=== PATIENT | male | born 1955 | race Caucasian/White ===

== ENCOUNTER → 2016-10-15 | Outpatient (CLI) | payer OTHER ==
[~2016-10-15] MED LIST: ASPI-983 PO; CLOP75TA28 PO; HYDR-3820 PO; ISOS30TA3 PO; METO-270 PO; METO-352 PO; OMG1KC PO; PANT40TA3 PO; ROSU20TA PO
[2016-10-15 09:19] LABS: BILIRUBIN,DIRECT 0.1 MG/DL (0.0-0.3); BILIRUBIN,INDIRECT 0.4 MG/DL; BILIRUBIN,TOTAL 0.5 MG/DL (0.1-1.0); TOTAL PROTEIN 7.1 G/DL (6.4-8.2)
== END ==
LOC: LAB 08:44
PROVIDERS: ATTEND Physician Assistant
DX: R74.8 Abnormal levels of other serum enzymes (principal)
CPT/HCPCS: 36415; 80076

== ENCOUNTER → 2017-02-14 | Outpatient (CLI) | payer OTHER ==
--- NOTE | 2017-02-14 08:15 | Diagnostic Imaging Report ---
PROCEDURE: US Gallbladder. TECHNIQUE: Multiple real-time grayscale images were obtained over the right upper quadrant in various projections. INDICATION: Right upper quadrant pain. FINDINGS: The pancreas is largely obscured by bowel gas. The liver is fairly homogeneous with no focal lesion. There is hepatopedal flow in the portal vein. The CBD is obscured by bowel gas. The gallbladder demonstrates no stones or wall thickening. No pericholecystic fluid. Sonographic Mina sign reportedly negative. The right kidney is 11.8 CM in length with no hydronephrosis. There is a cyst measuring 3.8 CM in along the lateral aspect of the lower pole of the left kidney with internal minimal echogenicity may relate to debris with no solid component or internal flow evident. No ascites or fluid collection noted. IMPRESSION: No gallstones or evidence of cholecystitis. Dictated by: Dictated on workstation # [id number]
== END ==
LOC: RAD 06:58
PROVIDERS: ATTEND Family Medicine
DX: R10.11 Right upper quadrant pain (principal)
CPT/HCPCS: 76705

== ENCOUNTER 2017-03-15 02:00 | Emergency (ER) | payer OTHER ==
[~2017-03-15] VITALS: Ht 182.9 cm; Wt 90.7 kg
--- OUTSIDE RECORDS SUMMARY | 2017-03-15 02:10 | XMS REPORT | Continuity of Care Document ---
Author Author [facility] Organization [facility] Address Unknown Phone Unavailable Allergies Active Description Code Type Severity Reaction Onset Reported/Identified Relationship to Patient Clinical Status Yes meperidine [id number] Drug Allergy Unknown N/A 03/31/2016 Yes Penicillins [id number] Drug Allergy Unknown N/A 03/31/2016 Medications Problems Date Dx Coded Attending Type Code Diagnosis Diagnosed By 10/21/2014 RENE TIWARI DO Ot 715.36 10/21/2014 RENE TIWARI DO Ot 717.1 10/21/2014 RENE TIWARI DO Ot 717.2 10/21/2014 RENE TIWARI DO Ot 727.51 09/01/2015 RENE TIWARI DO Ot 715.36 09/01/2015 GELMEGHANADER RENE MCKEE Ot 717.1 09/01/2015 GELMEGHANADER RENE MCKEE Ot 717.2 09/01/2015 RENE TIWARI DO Ot 727.51 03/31/2016 RENE TIWARI DO Ot 715.36 LOC OSTEOARTH NOS-L/LEG 03/31/2016 RENE TIWARI DO Ot 717.1 DERANG ANT MED MENISCUS 03/31/2016 GELRENE AMAYA DO Ot 717.2 DERANG POST MED MENISCUS 03/31/2016 GELMEGHANADER RENE MCKEE Ot 727.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 04/02/2016 MOO KASPER MD Ot E78.5 HYPERLIPIDEMIA, UNSPECIFIED 04/02/2016 MOO KASPER MD Ot I10 ESSENTIAL (PRIMARY) HYPERTENSION 04/02/2016 MOO KASPER MD Ot I21.19 STEMI INVOLVING OTH CORONARY ARTERY OF I 04/02/2016 MOO KASPER MD Ot I25.10 ATHSCL HEART DISEASE OF [place] CORONARY 04/02/2016 MOO KASPER MD, Ot I25.82 CHRONIC TOTAL OCCLUSION OF CORONARY [place] 04/02/2016 MOO KASPER MD, Ot K21.9 GASTRO-ESOPHAGEAL REFLUX DISEASE WITHOUT 04/02/2016 MOO KASPER MD, Ot Z87.891 PERSONAL HISTORY OF NICOTINE DEPENDENCE 04/02/2016 MOO KASPER MD Ot E78.5 HYPERLIPIDEMIA, UNSPECIFIED 04/02/2016 MOO KASPER MD Ot I10 ESSENTIAL (PRIMARY) HYPERTENSION 04/02/2016 MOO KASPER MD Ot I21.19 STEMI INVOLVING OTH CORONARY ARTERY OF I 04/02/2016 MOO KASPER MD, Ot I25.10 ATHSCL HEART DISEASE OF [place] CORONARY 04/02/2016 MOO KASPER MD, Ot I25.82 CHRONIC TOTAL OCCLUSION OF CORONARY [place]IR[place] 04/02/2016 MOO KASPER MD, Ot K21.9 GASTRO-ESOPHAGEAL REFLUX DISEASE WITHOUT 04/02/2016 MOO KASPER MD Ot R09.89 OT SYMPTOMS AND SIGNS INVOLVING THE CIR 04/02/2016 MOO KASPER MD, Ot Z87.891 PERSONAL HISTORY OF NICOTINE DEPENDENCE 04/08/2016 RENE TIWARI DO Ot 715.36 LOC OSTEOARTH NOS-L/LEG 04/08/2016 RENE TIWARI DO Ot 717.1 DERANG ANT MED MENISCUS 04/08/2016 RENE TIWARI DO Ot 717.2 DERANG POST MED MENISCUS 04/08/2016 RENE TIWARI DO Ot 727.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 04/08/2016 CHRIS BRAXTON MD Ot K40.90 UNIL INGUINAL HERNIA, W/O OBST OR GANGR, 04/08/2016 CHRIS BRAXTON MD Ot K44.9 DIAPHRAGMATIC HERNIA WITHOUT OBSTRUCTION 04/08/2016 CHRIS BRAXTON MD Ot K57.30 DVRTCLOS OF LG INT W/O PERFORATION OR AB 04/08/2016 CHRIS RBAXTON MD Ot N20.2 CALCULUS OF KIDNEY WITH CALCULUS OF URET 04/08/2016 CHRIS BRAXTON MD Ot R10.31 RIGHT LOWER QUADRANT PAIN 04/13/2016 CHRIS BRAXTON MD, Ot N20.0 CALCULUS OF KIDNEY 04/20/2016 ALISTAIR MULLEN MD, Ot N20.2 CALCULUS OF KIDNEY WITH CALCULUS OF URET 04/21/2016 ALISTAIR MULLEN MD Ot Z53.9 PROCEDURE AND TREATMENT NOT CARRIED OUT, 05/01/2016 NIXON KASPER MD Ot I10 ESSENTIAL (PRIMARY) HYPERTENSION 05/01/2016 NIXON KASPER MD Ot R04.0 EPISTAXIS 05/01/2016 NIXON KASPER MD, Ot Z79.01 ALF (CURRENT) USE OF ANTICOAGULANT 05/01/2016 GELLENDER DO, RENE Cabezas Ot 715.36 LOC OSTEOARTH NOS-L/LEG 05/01/2016 GELLENDER DO, RENE Raulito Ot 717.1 DERANG ANT MED MENISCUS 05/01/2016 GELLENDER DO, RENE A Ot 717.2 DERANG POST MED MENISCUS 05/01/2016 GELLENDER DO, RENE A Ot 727.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 05/01/2016 IRAIS HINSON, CHRIS Cabezas Ot K40.90 UNIL INGUINAL HERNIA, W/O OBST OR GANGR, 05/01/2016 CHRIS BRAXTON MD Ot K44.9 DIAPHRAGMATIC HERNIA WITHOUT OBSTRUCTION 05/01/2016 CHRIS BRAXTON MD Ot K57.30 DVRTCLOS OF LG INT W/O PERFORATION OR AB 05/01/2016 CHRIS BRAXTON MD Ot N20.2 CALCULUS OF KIDNEY WITH CALCULUS OF URET 05/01/2016 CHRIS BRAXTON MD Ot R10.31 RIGHT LOWER QUADRANT PAIN 05/01/2016 CHRIS BRAXTON MD, Ot N20.0 CALCULUS OF KIDNEY 05/01/2016 ALISTAIR MULLEN MD, Ot Z53.9 PROCEDURE AND TREATMENT NOT CARRIED OUT, 05/01/2016 ALISTAIR MULLEN MD, Ot N20.2 CALCULUS OF KIDNEY WITH CALCULUS OF URET 05/03/2016 NIXON KASPER MD Ot I10 ESSENTIAL (PRIMARY) HYPERTENSION 05/03/2016 NIXON KASPER MD Ot R04.0 EPISTAXIS 05/03/2016 NIXON KASPER MD, Ot Z79.01 ALF (CURRENT) USE OF ANTICOAGULANT 06/01/2016 MOO KASPER MD Ot E78.5 HYPERLIPIDEMIA, UNSPECIFIED 06/01/2016 MOO KASPER MD Ot I10 ESSENTIAL (PRIMARY) HYPERTENSION 06/01/2016 MOO KASPER MD Ot I21.3 ST ELEVATION (STEMI) MYOCARDIAL INFARCTI 06/01/2016 MOO KASPER MD Ot I25.10 ATHSCL HEART DISEASE OF [place] CORONARY 06/01/2016 MOO KASPER MD Ot K21.9 GASTRO-ESOPHAGEAL REFLUX DISEASE WITHOUT 11/04/2016 YOHAN QUINTERO Ot R74.8 ABNORMAL LEVELS OF OTHER SERUM ENZYMES 02/10/2017 GELMONIQUE DORENE Ot 715.36 LOC OSTEOARTH NOS-L/LEG 02/10/2017 GELLENDER DO, RENE Cabezas Ot 717.1 DERANG ANT MED MENISCUS 02/10/2017 GELLENDER DO, RENE Cabezas Ot 717.2 DERANG POST MED MENISCUS 02/10/2017 GELLENDER DO, RENE Cabezas Ot 727.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 02/10/2017 CHRIS BRAXTON MD, Ot N20.0 CALCULUS OF KIDNEY 02/10/2017 ALISTAIR MULLEN MD Ot Z53.9 PROCEDURE AND TREATMENT NOT CARRIED OUT, 02/10/2017 ALISTAIR MULLEN MD Ot N20.2 CALCULUS OF KIDNEY WITH CALCULUS OF URET 02/10/2017 MOO KASPER MD Ot E78.5 HYPERLIPIDEMIA, UNSPECIFIED 02/10/2017 MOO KASPER MD Ot I10 ESSENTIAL (PRIMARY) HYPERTENSION 02/10/2017 MOO KASPER MD Ot I21.3 ST ELEVATION (STEMI) MYOCARDIAL INFARCTI 02/10/2017 MOO KASPER MD Ot I25.10 ATHSCL HEART DISEASE OF [place] CORONARY 02/10/2017 MOO KASPER MD, Ot K21.9 GASTRO-ESOPHAGEAL REFLUX DISEASE WITHOUT 02/10/2017 YOHAN QUINTERO Ot R74.8 ABNORMAL LEVELS OF OTHER SERUM ENZYMES 02/10/2017 GELLENDER DORENE Ot 715.36 LOC OSTEOARTH NOS-L/LEG 02/10/2017 GELLENDER DORENE Ot 717.1 DERANG ANT MED MENISCUS 02/10/2017 GELLENDER DO, RENE Cabezas Ot 717.2 DERANG POST MED MENISCUS 02/10/2017 GELLENDER DO, RENE Cabezas Ot 727.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 02/10/2017 CHRIS BRAXTON MD Ot N20.0 CALCULUS OF KIDNEY 02/10/2017 ALISTAIR MULLEN MD Ot Z53.9 PROCEDURE AND TREATMENT NOT CARRIED OUT, 02/10/2017 ALISTAIR MULLEN MD Ot N20.2 CALCULUS OF KIDNEY WITH CALCULUS OF URET 02/10/2017 MOO KASPER MD Ot E78.5 HYPERLIPIDEMIA, UNSPECIFIED 02/10/2017 MOO KASPER MD Ot I10 ESSENTIAL (PRIMARY) HYPERTENSION 02/10/2017 MOO KASPER MD Ot I21.3 ST ELEVATION (STEMI) MYOCARDIAL INFARCTI 02/10/2017 MOO KASPER MD, Ot I25.10 ATHSCL HEART DISEASE OF [place] CORONARY 02/10/2017 MOO KASPER MD Ot K21.9 GASTRO-ESOPHAGEAL REFLUX DISEASE WITHOUT 02/10/2017 YOHAN QUINTERO Ot R74.8 ABNORMAL LEVELS OF OTHER SERUM ENZYMES 02/10/2017 GELLENDER DO, RENE Cabezas Ot 715.36 LOC OSTEOARTH NOS-L/LEG 02/10/2017 GELLENDER DORENE Ot 717.1 DERANG ANT MED MENISCUS 02/10/2017 GELLENDER DO, RENE Cabezas Ot 717.2 DERANG POST MED MENISCUS 02/10/2017 GELLENDER DO, RENE Raulito Ot 727.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 02/10/2017 CHRIS BRAXTON MD Ot N20.0 CALCULUS OF KIDNEY 02/10/2017 ALISTAIR MULLEN MD Ot Z53.9 PROCEDURE AND TREATMENT NOT CARRIED OUT, 02/10/2017 ALISTAIR MULLEN MD Ot N20.2 CALCULUS OF KIDNEY WITH CALCULUS OF URET 02/10/2017 MOO KASPER MD Ot E78.5 HYPERLIPIDEMIA, UNSPECIFIED 02/10/2017 MOO KASPER MD Ot I10 ESSENTIAL (PRIMARY) HYPERTENSION 02/10/2017 MOO KASPER MD Ot I21.3 ST ELEVATION (STEMI) MYOCARDIAL INFARCTI 02/10/2017 MOO KASPER MD Ot I25.10 ATHSCL HEART DISEASE OF [place] CORONARY 02/10/2017 MOO KASPER MD Ot K21.9 GASTRO-ESOPHAGEAL REFLUX DISEASE WITHOUT 02/10/2017 YOHAN QUINTERO Ot R74.8 ABNORMAL LEVELS OF OTHER SERUM ENZYMES Procedures Code Description Performed By Performed On [id number] DILATION OF 1 COR ART WITH DRUG-ELUT INT 03/31/2016 [id number] MEASURE OF CARDIAC SAMPL PRESSURE, R H 03/31/2016 [id number] FLUOROSCOPY OF SINGLE CORONARY ARTERY US 03/31/2016 [id number] FLUOROSCOPY OF LEFT HEART USING LOW OSMO 03/31/2016 Results Test Result Range Complete blood count (CBC) with automated white blood cell (WBC) differential - 03/31/16 19:08 Blood leukocytes automated count (number/volume) 7.6 10*3/ uL 4.3-11.0 Blood erythrocytes automated count (number/volume) 4.96 10*6 /uL 4.35-5.85 Venous blood hemoglobin measurement (mass/volume) 15.5 g/dL 13.3-17.7 Blood hematocrit (volume fraction) 46 % 40-54 Automated erythrocyte mean corpuscular volume 93 [foz_us] 80-99 Automated erythrocyte mean corpuscular hemoglobin (mass per erythrocyte) 31 pg 25-34 Automated erythrocyte mean corpuscular hemoglobin concentration measurement ( mass/volume) 34 g/dL 32-36 Automated erythrocyte distribution width ratio 13.5 % 10.0-14.5 Automated blood platelet count (count/volume) 195 10*3/uL 130-400 Automated blood platelet mean volume measurement 11.4 [foz_ us] 7.4-10.4 Automated blood neutrophils/100 leukocytes 56 % 42-75 Automated blood lymphocytes/100 leukocytes 29 % 12-44 Blood monocytes/100 leukocytes 11 % 0-12 Automated blood eosinophils/100 leukocytes 4 % 0-10 Automated blood basophils/100 leukocytes 1 % 0-10 Blood neutrophils automated count (number/volume) 4.3 10*3 1.8-7.8 Blood lymphocytes automated count (number/volume) 2.2 10*3 1.0-4.0 Blood monocytes automated count (number/volume) 0.8 10*3 0.0-1.0 Automated eosinophil count 0.3 10*3/uL 0.0-0.3 Automated blood basophil count (count/volume) 0.1 10*3/uL 0.0-0.1 PT panel in platelet poor plasma by coagulation assay - 03/31/16 19:08 Prothrombin time (PT) in platelet poor plasma by coagulation assay 13.0 s 12.2-14.7 INR in platelet poor plasma or blood by coagulation assay 1.0 0.8-1.4 Activated partial thromboplastin time (aPTT) in platelet poor plasma bycoagulation assay - 03/31/16 19:08 Activated partial thromboplastin time (aPTT) in platelet poor plasma bycoagulation assay 28 s 24-35 Comprehensive metabolic panel - 03/31/16 19:08 Serum or plasma sodium measurement (moles/volume) 139 mmol/ L 135-145 Serum or plasma potassium measurement (moles/volume) 4.2 mmol/L 3.6-5.0 Serum or plasma chloride measurement (moles/volume) 104 mmol /L 98-107 Carbon dioxide 27 mmol/L 21-32 Serum or plasma anion gap determination (moles/volume) 8 mmol/L 5-14 Serum or plasma urea nitrogen measurement (mass/volume) 17 mg/dL 7-18 Serum or plasma creatinine measurement (mass/volume) 1.60 mg /dL 0.60-1.30 Serum or plasma urea nitrogen/creatinine mass ratio 11 NRG Serum or plasma creatinine measurement with calculation of estimated glomerular filtration rate 44 NRG Serum or plasma glucose measurement (mass/volume) 145 mg/dL 70-105 Serum or plasma calcium measurement (mass/volume) 9.4 mg/dL 8.5-10.1 Serum or plasma total bilirubin measurement (mass/volume) 0.6 mg/dL 0.1-1.0 Serum or plasma alkaline phosphatase measurement (enzymatic activity/volume) 94 U/L 40-136 Serum or plasma aspartate aminotransferase measurement (enzymatic activity/ volume) 39 U/L 5-34 Serum or plasma alanine aminotransferase measurement (enzymatic activity/volume ) 55 U/L 0-55 Serum or plasma protein measurement (mass/volume) 7.3 g/dL 6.4-8.2 Serum or plasma albumin measurement (mass/volume) 4.3 g/dL 3.2-4.5 Magnesium - 03/31/16 19:08 Magnesium 2.1 mg/dL 1.8-2.4 Serum or plasma troponin i.cardiac measurement (mass/volume) - 03/31/16 19:08 Serum or plasma troponin i.cardiac measurement (mass/volume) 0.69 ng/mL <0.30 Myoglobin, serum - 03/31/16 19:08 Myoglobin, serum 112.4 ng/mL 10.0-92.0 Automated blood complete blood count (hemogram) panel - 04/01/16 04:06 Blood leukocytes automated count (number/volume) 11.5 10*3/ uL 4.3-11.0 Blood erythrocytes automated count (number/volume) 4.29 10*6 /uL 4.35-5.85 Venous blood hemoglobin measurement (mass/volume) 13.8 g/dL 13.3-17.7 Blood hematocrit (volume fraction) 40 % 40-54 Automated erythrocyte mean corpuscular volume 94 [foz_us] 80-99 Automated erythrocyte mean corpuscular hemoglobin (mass per erythrocyte) 32 pg 25-34 Automated erythrocyte mean corpuscular hemoglobin concentration measurement ( mass/volume) 34 g/dL 32-36 Automated erythrocyte distribution width ratio 13.4 % 10.0-14.5 Automated blood platelet count (count/volume) 155 10*3/uL 130-400 Automated blood platelet mean volume measurement 11.4 [foz_ us] 7.4-10.4 Whole blood basic metabolic panel - 04/01/16 04:06 Serum or plasma sodium measurement (moles/volume) 139 mmol/ L 135-145 Serum or plasma potassium measurement (moles/volume) 4.2 mmol/L 3.6-5.0 Serum or plasma chloride measurement (moles/volume) 107 mmol /L 98-107 Carbon dioxide 24 mmol/L 21-32 Serum or plasma anion gap determination (moles/volume) 8 mmol/L 5-14 Serum or plasma urea nitrogen measurement (mass/volume) 16 mg/dL 7-18 Serum or plasma creatinine measurement (mass/volume) 1.18 mg /dL 0.60-1.30 Serum or plasma urea nitrogen/creatinine mass ratio 14 NRG Serum or plasma creatinine measurement with calculation of estimated glomerular filtration rate > NRG Serum or plasma glucose measurement (mass/volume) 147 mg/dL 70-105 Serum or plasma calcium measurement (mass/volume) 8.5 mg/dL 8.5-10.1 Serum or plasma troponin i.cardiac measurement (mass/volume) - 04/01/16 04:06 Serum or plasma troponin i.cardiac measurement (mass/volume) 77.76 ng/mL <0.30 Lipid 1996 panel - 04/01/16 04:06 Serum or plasma triglyceride measurement (mass/volume) 193 mg/dL <150 Serum or plasma cholesterol measurement (mass/volume) 170 mg /dL < 200 Serum or plasma cholesterol in HDL measurement (mass/volume) 37 mg/dL 40-60 Cholesterol in LDL [mass/volume] in serum or plasma by direct assay 97 mg/dL 1-129 Serum or plasma cholesterol in VLDL measurement (mass/volume) 39 mg/dL 5-40 Automated blood complete blood count (hemogram) panel - 04/02/16 04:09 Blood leukocytes automated count (number/volume) 8.6 10*3/ uL 4.3-11.0 Blood erythrocytes automated count (number/volume) 3.61 10*6 /uL 4.35-5.85 Venous blood hemoglobin measurement (mass/volume) 11.3 g/dL 13.3-17.7 Blood hematocrit (volume fraction) 34 % 40-54 Automated erythrocyte mean corpuscular volume 95 [foz_us] 80-99 Automated erythrocyte mean corpuscular hemoglobin (mass per erythrocyte) 31 pg 25-34 Automated erythrocyte mean corpuscular hemoglobin concentration measurement ( mass/volume) 33 g/dL 32-36 Automated erythrocyte distribution width ratio 13.6 % 10.0-14.5 Automated blood platelet count (count/volume) 125 10*3/uL 130-400 Automated blood platelet mean volume measurement 11.2 [foz_ us] 7.4-10.4 Whole blood basic metabolic panel - 04/02/16 04:09 Serum or plasma sodium measurement (moles/volume) 139 mmol/ L 135-145 Serum or plasma potassium measurement (moles/volume) 4.1 mmol/L 3.6-5.0 Serum or plasma chloride measurement (moles/volume) 110 mmol /L 98-107 Carbon dioxide 22 mmol/L 21-32 Serum or plasma anion gap determination (moles/volume) 7 mmol/L 5-14 Serum or plasma urea nitrogen measurement (mass/volume) 17 mg/dL 7-18 Serum or plasma creatinine measurement (mass/volume) 1.16 mg /dL 0.60-1.30 Serum or plasma urea nitrogen/creatinine mass ratio 15 NRG Serum or plasma creatinine measurement with calculation of estimated glomerular filtration rate > NRG Serum or plasma glucose measurement (mass/volume) 89 mg/dL 70-105 Serum or plasma calcium measurement (mass/volume) 7.8 mg/dL 8.5-10.1 [id number] gene mutation analysis - 04/02/16 04:09 [id number] gene mutation analysis NORMAL NRG Complete urinalysis with reflex to culture - 04/08/16 12:40 Urine color determination YELLOW NRG Urine clarity determination CLEAR NRG Urine pH measurement by test strip 7 5- 9 Specific gravity of urine by test strip 1.010 1.016-1.022 Urine protein assay by test strip, semi-quantitative NEGATIVE NEGATIVE Urine glucose detection by automated test strip NEGATIVE NEGATIVE Erythrocytes detection in urine sediment by light microscopy 5+ NEGATIVE Urine ketones detection by automated test strip NEGATIVE NEGATIVE Urine nitrite detection by test strip NEGATIVE NEGATIVE Urine total bilirubin detection by test strip NEGATIVE NEGATIVE Urine urobilinogen measurement by automated test strip (mass/volume) NORMAL NORMAL Urine leukocyte esterase detection by dipstick NEGATIVE NEGATIVE Automated urine sediment erythrocyte count by microscopy (number/high power field) > [HPF] NRG Automated urine sediment leukocyte count by microscopy (number/high power field ) NONE NRG Bacteria detection in urine sediment by light microscopy NEGATIVE NRG Squamous epithelial cells detection in urine sediment by light microscopy RARE NRG Crystals detection in urine sediment by light microscopy NONE NRG Casts detection in urine sediment by light microscopy NONE NRG Mucus detection in urine sediment by light microscopy SMALL NRG Complete urinalysis with reflex to culture NO NRG Complete blood count (CBC) with automated white blood cell (WBC) differential - 04/08/16 12:57 Blood leukocytes automated count (number/volume) 7.6 10*3/ uL 4.3-11.0 Blood erythrocytes automated count (number/volume) 4.22 10*6 /uL 4.35-5.85 Venous blood hemoglobin measurement (mass/volume) 13.5 g/dL 13.3-17.7 Blood hematocrit (volume fraction) 39 % 40-54 Automated erythrocyte mean corpuscular volume 93 [foz_us] 80-99 Automated erythrocyte mean corpuscular hemoglobin (mass per erythrocyte) 32 pg 25-34 Automated erythrocyte mean corpuscular hemoglobin concentration measurement ( mass/volume) 34 g/dL 32-36 Automated erythrocyte distribution width ratio 13.4 % 10.0-14.5 Automated blood platelet count (count/volume) 230 10*3/uL 130-400 Automated blood platelet mean volume measurement 10.9 [foz_ us] 7.4-10.4 Automated blood neutrophils/100 leukocytes 67 % 42-75 Automated blood lymphocytes/100 leukocytes 19 % 12-44 Blood monocytes/100 leukocytes 10 % 0-12 Automated blood eosinophils/100 leukocytes 3 % 0-10 Automated blood basophils/100 leukocytes 0 % 0-10 Blood neutrophils automated count (number/volume) 5.1 10*3 1.8-7.8 Blood lymphocytes automated count (number/volume) 1.5 10*3 1.0-4.0 Blood monocytes automated count (number/volume) 0.8 10*3 0.0-1.0 Automated eosinophil count 0.3 10*3/uL 0.0-0.3 Automated blood basophil count (count/volume) 0.0 10*3/uL 0.0-0.1 PT panel in platelet poor plasma by coagulation assay - 04/08/16 12:57 Prothrombin time (PT) in platelet poor plasma by coagulation assay 12.6 s 12.2-14.7 INR in platelet poor plasma or blood by coagulation assay 1.0 0.8-1.4 Activated partial thromboplastin time (aPTT) in platelet poor plasma bycoagulation assay - 04/08/16 12:57 Activated partial thromboplastin time (aPTT) in platelet poor plasma bycoagulation assay 28 s 24-35 Comprehensive metabolic panel - 04/08/16 12:57 Serum or plasma sodium measurement (moles/volume) 139 mmol/ L 135-145 Serum or plasma potassium measurement (moles/volume) 4.1 mmol/L 3.6-5.0 Serum or plasma chloride measurement (moles/volume) 108 mmol /L 98-107 Carbon dioxide 23 mmol/L 21-32 Serum or plasma anion gap determination (moles/volume) 8 mmol/L 5-14 Serum or plasma urea nitrogen measurement (mass/volume) 14 mg/dL 7-18 Serum or plasma creatinine measurement (mass/volume) 1.56 mg /dL 0.60-1.30 Serum or plasma urea nitrogen/creatinine mass ratio 9 NRG Serum or plasma creatinine measurement with calculation of estimated glomerular filtration rate 45 NRG Serum or plasma glucose measurement (mass/volume) 106 mg/dL 70-105 Serum or plasma calcium measurement (mass/volume) 8.8 mg/dL 8.5-10.1 Serum or plasma total bilirubin measurement (mass/volume) 0.6 mg/dL 0.1-1.0 Serum or plasma alkaline phosphatase measurement (enzymatic activity/volume) 93 U/L 40-136 Serum or plasma aspartate aminotransferase measurement (enzymatic activity/ volume) 29 U/L 5-34 Serum or plasma alanine aminotransferase measurement (enzymatic activity/volume ) 41 U/L 0-55 Serum or plasma protein measurement (mass/volume) 6.7 g/dL 6.4-8.2 Serum or plasma albumin measurement (mass/volume) 3.9 g/dL 3.2-4.5 Magnesium - 04/08/16 12:57 Magnesium 2.1 mg/dL 1.8-2.4 Serum or plasma troponin i.cardiac measurement (mass/volume) - 04/08/16 12:57 Serum or plasma troponin i.cardiac measurement (mass/volume) 0.93 ng/mL <0.30 Lipase - 04/08/16 12:57 Lipase 39 U/L 8-78 Serum or plasma lithium measurement (moles/volume) - 04/08/16 12:57 BNP level 164.5 pg/mL <100.0 Liver function panel (serum or plasma alk phos, alb, total and direct bili, total protein, ALT, AST) - 10/15/16 08:50 Serum or plasma total bilirubin measurement (mass/volume) 0.5 mg/dL 0.1-1.0 Serum or plasma alkaline phosphatase measurement (enzymatic activity/volume) 83 U/L 40-136 Serum or plasma aspartate aminotransferase measurement (enzymatic activity/ volume) 54 U/L 5-34 Serum or plasma alanine aminotransferase measurement (enzymatic activity/volume ) 118 U/L 0-55 Serum or plasma protein measurement (mass/volume) 7.1 g/dL 6.4-8.2 Serum or plasma albumin measurement (mass/volume) 4.0 g/dL 3.2-4.5 Bilirubin direct 0.1 mg/dL 0.0-0.3 Serum or plasma indirect bilirubin measurement (mass/volume) 0.4 mg/dL NRG Encounters ACCT No. Visit Date/Time Discharge Status Pt. Type Provider Facility Loc./Unit Complaint [id number] 05/01/2016 11:11:00 2015 12:19:00 DIS Emergency NIXON KASPER MD [facility] ER NOSE BLEED [id number] 04/08/2016 12:31:00 2015 14:31:00 DIS Emergency CHRIS BRAXTON MD [facility] ER LEFT SIDE ABD PAIN [id number] 03/31/2016 21:15:00 2015 12:18:00 DIS Inpatient MOO KASPER MD [facility] ICU STEMI [id number] 10/08/2013 15:37:00 2013 23:59:59 CLS Outpatient RENE TIWARI DO [facility] RAD RT KNEE PAIN X3 MONTHS [id number] 04/17/2017 10:15:00 PEN Preadmit MOO KASPER MD [facility] CARD CAD I25.10 [id number] 02/14/2017 07:00:00 PEN Preadmit RENE TIWARI DO [facility] RAD PAIN IN RUQ [id number] 10/15/2016 08:44:00 ACT Outpatient YOHAN STOUT [facility] LAB ELEVATED LIVER ENZYMES [id number] 05/31/2016 07:53:00 ACT Outpatient MOO KASPER MD [facility] LAB CAD,GERD,HTN [id number] 04/19/2016 09:00:00 PEN Preadmit ALISTAIR MULLEN MD [facility] SDC LEFT STONE [id number] 04/18/2016 08:26:00 ACT Outpatient ALISTAIR MULLEN MD [facility] RAD URETERAL AND RENAL STONE [id number] 04/18/2016 06:20:00 ACT Outpatient ALISTAIR MULLEN MD [facility] PREOP LEFT STONE [id number] 04/11/2016 10:06:00 ACT Outpatient CHRIS BRAXTON MD [facility] RAD NEPHROLITHIASIS
[2017-03-15] MEDS ORDERED: OXYMETAZOLINE (AFRIN) 0.05% NA 15 ML BTL ONE (02:31)
--- NOTE | 2017-03-15 03:31 | ED EENT ---
History of Present Illness General Chief Complaint: Nasal Problems Stated Complaint: NOSE BLEED Nursing Triage Note: PT TO ED 10 W/ FAMILY FOR C/O RT NOSE BLEED ONSET THIS EVENING AT 2200. DENIES TRAUMA. DOES REPORT HE IS TAKING BLOOD THINNERS FOR STENT PLACEMENT X2. NO OTHER C/O VOICED Source: patient Exam Limitations: no limitations History of Present Illness Time seen by provider: 04:28 Initial Comments This 61-year-old gentleman presents to the emergency room with right-sided nosebleed for several hours. He takes aspirin and Plavix. He can identify no inciting event. He has been trying to apply direct pressure and applied a tissue packing but states bleeding persists. Bleeding does seem to have resolved by the time of my assessment. He reports feeling nauseated from swallowing much blood. Allergies and Home Medications Allergies Coded Allergies: Penicillins (Verified Allergy, Unknown, 03/31/16) meperidine (Verified Allergy, Unknown, 03/31/16) Home Medications Aspirin 81 Mg Tablet., 81 MG PO DAILY, #30 Ref 4 Prescribed by: MOO KASPER on 04/02/16 1013 Clopidogrel Bisulfate 75 Mg Tablet, 75 MG PO DAILY, #30 Ref 4 Prescribed by: MOO KASPER on 04/02/16 1013 Isosorbide Mononitrate 30 Mg Tab.er.24h, 30 MG PO DAILY, #30 Ref 4 Prescribed by: MOO KASPER on 04/02/16 1013 Metoprolol Succinate 50 Mg Tab.er.24h, 50 MG PO DAILY, #30 Ref 1 Prescribed by: NIXON NICK on 05/01/16 1207 Pantoprazole Sodium 40 Mg Tablet., 40 MG PO DAILY@0700, #30 Ref 4 Prescribed by: MOO KASPER on 04/02/16 1013 Rosuvastatin Calcium 20 Mg Tablet, 20 MG PO DAILY, #30 Ref 4 Prescribed by: MOO KASPER on 04/02/16 1013 Review of Systems Constitutional: no symptoms reported Eyes: No Symptoms Reported Ears: No Symptoms Reported Nose: see HPI Mouth: no symptoms reported Throat: no symptoms reported Respiratory: no symptoms reported Cardiovascular: no symptoms reported Gastrointestinal: see HPI Musculoskeletal: no symptoms reported Hematologic/Lymphatic: See HPI Past Xaantgv-Jbbfgo-Afoaij Hx Patient Social History Alcohol Use: Denies Use Recreational Drug Use: No Smoking Status: Former Smoker Recent Foreign Travel: No Contact w/Someone Who Travel: No Recent Infectious Disease Expo: No Recent Hopitalizations: Yes Immunizations Up To Date Tetanus Booster (TDap): More than 5yrs PED Vaccines UTD: No Seasonal Allergies Seasonal Allergies: No Surgeries HX Surgeries: Yes Surgeries: Abdominal, Cardiac, Coronary Stent, Orthopedic Respiratory Hx Respiratory Disorders: No Cardiovascular Hx Cardiac Disorders: Yes Cardiac Disorders: Coronary Artery Disease, High Cholesterol, Hypertension Neurological Hx Neurological Disorders: No Reproductive System Hx Reproductive Disorders: No Sexually Transmitted Disease: No HIV/AIDS: No Genitourinary Hx Genitourinary Disorders: No Gastrointestinal Hx Gastrointestinal Disorders: No Musculoskeletal Hx Musculoskeletal Disorders: No Endocrine Hx Endocrine Disorders: No HEENT HX ENT Disorders: No Loss of Vision: Denies Hearing Impairment: Denies Cancer Hx Cancer: No Psychosocial Hx Psychiatric Problems: No Integumentary HX Skin/Integumentary Disorder: No Blood Transfusions Hx Blood Disorders: No Family Medical History Significant Family History: CAD Under 55 Years Old Physical Exam Vital Signs Vital Sign - Last 12Hours 03/15/17 03/15/17 02:21 03:34 Temp 97.5 Pulse 69 Resp 18 B/P (MAP) 129/103 Pulse Ox 97 O2 Delivery Room Air General Appearance: WD/WN, no apparent distress Nose: No active bleeding, other (Tissue packed in the right nostril with blood clot. 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 (03/15/17 09:00) Oxymetazoline 0.05% Nasal [place] (Afrin 0. (03/15/17 02:31) Vital Signs/I&O Vital Sign - Last 12Hours 03/15/17 03/15/17 02:21 03:34 Temp 97.5 Pulse 69 61 Resp 18 18 B/P (MAP) 129/103 Pulse Ox 97 99 O2 Delivery Room Air Blood Pressure Mean: 112 Progress Note : Progress Note Afrin nasal spray was applied. Patient was monitored to ensure no rebound of bleeding. No active bleeding occurred during his stay. Departure Impression Impression: Primary Impression: Epistaxis Disposition: HOME, SELF-CARE Condition: Improved Departure-Patient Inst. Decision time for Depature: 03:29 Referrals: RENE TIWARI DO (PCP/Family) Primary Care Physician Patient Instructions: Nosebleeds (DC) Add. Discharge Instructions: Skip your Plavix dose today. Continue aspirin. You may resume Plavix tomorrow if there is no further bleeding. If bleeding resumes, use up to 4 squirts of Afrin in the nose on the affected side and apply direct pressure by pinching the nose. If this does not resolve the bleeding in 15-20 minutes, return to the emergency room. All discharge instructions reviewed with patient and/or family. Voiced understanding. NIXON KASPER MD Mar 15, 2017 03:31
[2017-03-15 03:34] VITALS: BP 130/91
[2017-03-15] MEDS ORDERED: OXYMETAZOLINE (AFRIN) 0.05% NA 15 ML BTL SCH (09:00)
== END 2017-03-15 03:34 | disposition home or self-care (01) ==
LOC: EDUNIT# 02:00 → ER 02:02
DX: R04.0 Epistaxis (principal); I25.10 Atherosclerotic heart disease of native coronary artery without angina pectoris; E78.00 Pure hypercholesterolemia, unspecified; I10 Essential (primary) hypertension; Z95.1 Presence of aortocoronary bypass graft; Z87.891 Personal history of nicotine dependence; Z79.82 Long term (current) use of aspirin; Z98.890 Other specified postprocedural states
CPT/HCPCS: 99282

== ENCOUNTER → 2017-04-17 | Outpatient (CLI) | payer OTHER ==
[~2017-04-17] MED LIST changes: +CATHETER FLUSH 10 ML SYR IV PRN
[2017-04-17 09:42] VITALS: BP 126/70
--- NOTE | 2017-04-17 12:46 | STRESS TEST ---
DATE OF SERVICE: 04/17/2017 EXERCISE MYOVIEW STRESS TEST REFERRING PHYSICIAN: Dr. Singh Baseline heart rate is 49. Baseline blood pressure 135/77. Baseline EKG is sinus rhythm with no ischemic changes. SUMMARY: The patient was injected with 10.34 mCi of technetium-99 Myoview and the resting images were obtained. Then, the patient started exercising with a baseline heart rate, blood pressure and EKG mentioned above. The patient was able to exercise for a total of 9 minutes on standard Salo protocol, achieving maximum heart rate of 140, which is 89% of maximum expected heart rate. With peak exercise level, blood pressure was 176/86. During recovery, heart rate and blood pressure returned to baseline. EKG returned to baseline. The patient had minimal nondiagnostic changes with peak stress level. The resting and stress images were reviewed and compared in the short axis, horizontal long axis, and vertical long axis views. Review of the images showed diaphragmatic attenuation with mild decreased uptake at the basal to mid-inferior wall with subtle reversibility, typical male pattern. No significant ischemia or infarction was seen. SSS is 4, SDS 1, TID value 0.84. On the gaited images, the left ventricle appeared to be normal size with normal contractility. Calculated ejection fraction 66%. CONCLUSION: 1. Good exercise tolerance, a total of 9 minutes on standard Salo protocol, total of 10.5 METS achieving 89% of maximum expected heart rate. 2. Appropriate heart rate and blood pressure response to exercise returned to baseline during recovery. 3. Nondiagnostic EKG changes with exercise returned to baseline during recovery. 4. Diaphragmatic attenuation with typical male pattern. No significant ischemia or infarction on SPECT images. 5. Normal left ventricular size with normal contractility. Calculated ejection fraction 66%. Job ID: [id number] DocumentID: [id number] Dictated Date: 04/17/2017 11:56:53 Power Wheelchair Mechanic Date: 04/17/2017 12:34:03 Dictated By: MOO KASPER MD
== END ==
LOC: CARD 08:09
PROVIDERS: ATTEND Internal Medicine Cardiovascular Disease
DX: I25.10 Atherosclerotic heart disease of native coronary artery without angina pectoris (principal); I10 Essential (primary) hypertension; E78.2 Mixed hyperlipidemia
CPT/HCPCS: 78452; 93017

== ENCOUNTER 2017-05-11 09:35 | Outpatient (CLI) | payer OTHER ==
[~2017-05-11] VITALS: Ht 182.9 cm; Wt 93.9 kg
[~2017-05-11 09:35] MED LIST changes: -CATHETER FLUSH 10 ML SYR IV PRN
[2017-05-11] MEDS ORDERED: ROSU5TAB PO (09:45)
[2017-05-11] MEDS ORDERED: AMLO10TA4 PO (09:45)
[2017-05-11 09:47] VITALS: BP 134/92
== END 2017-05-11 13:34 | disposition home or self-care (01) ==
LOC: PREOP 09:35
PROVIDERS: ATTEND Orthopaedic Surgery
DX: Z01.818 Encounter for other preprocedural examination (principal); M75.102 Unspecified rotator cuff tear or rupture of left shoulder, not specified as traumatic
CPT/HCPCS: 87081

== ENCOUNTER 2017-05-23 06:00 | Day surgery (SDC) | payer OTHER ==
[~2017-05-23] VITALS: Ht 182.9 cm; Wt 93.9 kg
[~2017-05-23 06:00] MED LIST changes: +AMLO10TA4 PO; -METO-270 PO; +METO-387 PO; +ROSU5TAB PO
[2017-05-23 06:15] VITALS: BP 135/87
[2017-05-23] MEDS ORDERED: ceFAZolin 2 GM/50 ML NS 50 ML ONE (06:17)
[2017-05-23] MEDS ORDERED: MIDAZOLAM 2 MG/2 ML (VERSED) VIAL ONE (06:18)
[2017-05-23] MEDS ORDERED: ROPIVACAINE 5MG/ML 30ML VIAL ONE (06:19)
[2017-05-23] MEDS ORDERED: ONDANSETRON 4 MG/2 ML (SDV) Z0FRAN IV ONE (06:45)
[2017-05-23] MEDS ORDERED: FAMOTIDINE 20MG/2ML IV (PEPCID) IV ONE (06:45)
[2017-05-23] MEDS ORDERED: SCOPOLAMINE 1.5 MG (TRANSDERM-SCOP) PATCH TOP ONE (06:45)
[2017-05-23] MEDS: LACTATED RINGERS 1,000 ML IV PRN ×2 (06:50→08:46)
[2017-05-23] MEDS ORDERED: NEO/POLY/BAC (NEOSPORIN) OINT 15 GM TUBE ONE (06:59)
[2017-05-23] MEDS ORDERED: EPINEPHrine INJECTION 1 MG/ML AMP ONE (06:59)
[2017-05-23] MEDS ORDERED: LIDOCAINE 1% INJ 20 ML (XYLOCAINE) VIAL ONE (06:59)
[2017-05-23] MEDS ORDERED: ceFAZolin 2 GM/NS 50 ML IV ONE (07:00)
[2017-05-23] MEDS ORDERED: LACTATED RINGERS 1,000 ML IV ONE ×2 (07:01→08:43)
[2017-05-23] MEDS ORDERED: proPOfol 200 MG/20 ML (DIPRIVAN) VIAL IV ONE (07:01)
[2017-05-23] MEDS ORDERED: ROCURONIUM 50 MG/5 ML (ZEMURON) VIAL IV ONE (07:01)
[2017-05-23] MEDS ORDERED: LIDOCAINE PF 2% 5 ML (XYLOCAINE) VIAL ONE (07:01)
[2017-05-23] MEDS ORDERED: ONDANSETRON 4 MG/2 ML (SDV) Z0FRAN ONE (07:01)
[2017-05-23] MEDS ORDERED: SUCCINYLCHOLINE INJ 100 MG/5 ML SYR ONE (07:01)
[2017-05-23] MEDS ORDERED: fentaNYL INJECTION 100 MCG/2 ML AMP ONE (07:02)
[2017-05-23] MEDS ORDERED: DEXAMETHASONE 10 MG/ML (DECADRON) 1 ML VIAL ONE (07:02)
[2017-05-23] MEDS ORDERED: SEVOFLURANE (ULTANE) 15 ML INHAL SOLN ONE ×5 (07:04→08:55)
--- NOTE | 2017-05-23 07:37 | Discharge Inst-Simple/Standard ---
Discharge Inst-Standard Discharge Medications New, Converted or Re-Newed RX: RX on Chart Patient Instructions/Follow Up Plan of Care/Instructions/FU: See Dr. Pruett's shoulder arthroscopy DC instructions Activity as Tolerated: No Discharge Diet: No Restrictions Return to The Hospital For: any concerns NISHANT FERNÁNDEZ APRN May 23, 2017 7:37 am
[2017-05-23] MEDS ORDERED: CLINDAMYCIN 600 MG/4ML (CLEOCIN) VIAL ONE (07:44)
--- NOTE | 2017-05-23 07:44 | Anesthesia-Peripheral Nerve Bl ---
Procedure Start/Stop Time Date of Procedure: May 23, 2017 Start Time: 06:45 Stop Time: 07:00 Peripheral Nerve Block Peripheral Nerve Blockade Risk/Benefits/Alternatives discussed, including IV injection leading to complications or seizures, nerve irritation or damage, pneumothorax, total spinal anesthesia, injection, and/or bleeding. Side Confirmed: LEFT Indication: Surgical Anesthesia Specifically requested for management of pain by: Patient Condition Vital Signs Vital Signs Date Time Temp Pulse Resp B/P (MAP) Pulse Ox O2 Delivery O2 Flow Rate FiO2 05/23/17 06:15 97.6 82 18 135/87 95 Room Air Patient Condition: Awake, Sedate/contact maintained Procedure Prepartation: Chlorhexidine Position: Supine [place]: Short-bevel Needle (s) Size: 22g 2" Technique: Injection through needle, Nerve Stimulation mA: 0.6 Depth (cm): 2 Sedation Given: Fentanyl Dose (mg/mcg): 2 Injectate: ropivacaine Concentration %: 0.5 Volume (ml): 30 Epinephrine used: No Narrative Injection was made incrementally with constant monitoring. Aspiration every (mls): 5 Blood Aspirated: No Pain on injection noted: No Events Events: None:easy well tolerated Sucess: Full evaluation-pending Patient Conditon Post Peripheral Nerve Block Post Peripheral Nerve Block Vital Signs: Blood Pressure: Systolic Diastolic Heart Rate Blood Pressure Systolic: 135 Blood Pressure Diastolic: 87 Pulse Rate (adult): 82 MAGALI CAMPOVERDE CRNA May 23, 2017 07:44
[2017-05-23] MEDS ORDERED: HYDROcodone/APAP 10 MG/325 MG (LORTAB) TAB PO PRN (07:45)
[2017-05-23] MEDS ORDERED: NS (IVPB) 50 ML ONE (07:45)
--- NOTE | 2017-05-23 07:52 | Progress Note-Pre Operative ---
Pre-Operative Progress Note H&P Reviewed The H&P was reviewed, patient examined and no changes noted. Date Seen by Provider: May 23, 2017 Time Seen by Provider: 07:40 Date H&P Reviewed: May 23, 2017 Time H&P Reviewed: 07:40 Pre-Operative Diagnosis: Impingement syndrome Left shoulder Partial rotator cuff tear HELENE AKHTAR DO May 23, 2017 7:52 am
[2017-05-23] MEDS ORDERED: CLINDAMYCIN 600 MG/NS 50 ML IVPB IV ONE ×2 (08:00)
[2017-05-23] MEDS ORDERED: NEOSTIGMINE (BLOXIVERZ ) 1 MG/1ML 10 ML VIAL ONE (09:04)
[2017-05-23] MEDS ORDERED: GLYCOPYRROLATE 0.2 MG/ML (ROBINUL) 2 ML VIAL ONE (09:04)
--- NOTE | 2017-05-23 09:25 | Progress Note-Post Operative ---
Post-Operative Progess Note Surgeon (s)/Behavioral Scientist (s) Surgeon Derek Pruett DO Behavioral Scientist: Rodney Fernández, ROASTER OPERATOR-C Pre-Operative Diagnosis Impingement syndrome Left shoulder Partial rotator cuff tear Post-Operative Diagnosis 1 2 same, 3 Primary OA, 4 labral tear Procedure & Operative Findings Date of Procedure 05/23/17 Procedure Performed/Findings see op note Anesthesia Type general with block Estimated Blood Loss Estimated blood loss (mL): min Specimens/Packing Specimens Removed none RODNEY FERNÁNDEZ APRN May 23, 2017 9:25 am
[2017-05-23] MEDS ORDERED: morphine INJ 10 MG/ML 1ML (SYR OR VIAL) ONE (09:26)
[2017-05-23] MEDS ORDERED: morphine INJ 10 MG/ML 1ML (SYR OR VIAL) IVP PRN (09:30)
[2017-05-23] MEDS ORDERED: ONDANSETRON 4 MG/2 ML (SDV) Z0FRAN IVP PRN (09:30)
[2017-05-23 10:10] VITALS: BP 131/86
[2017-05-23] MEDS ORDERED: ONDA8TAB9 PO (10:19)
[2017-05-23] MEDS ORDERED: HYDR-753 PO (10:19)
[2017-05-23 10:40] VITALS: BP 135/92
[2017-05-23 11:10] VITALS: BP 118/84
--- NOTE | 2017-06-06 09:55 | OPERATIVE REPORT ---
DATE OF SERVICE: 05/23/2017 PREOPERATIVE DIAGNOSES: Partial rotator cuff tendon tear, left shoulder with impingement. POSTOPERATIVE DIAGNOSES: 1. Partial supraspinatus tendon tear, left shoulder. 2. Impingement syndrome left shoulder, secondary to primary osteoarthritis of the acromioclavicular joint. 3. Type 2 superior labral tear from anterior to posterior, left shoulder bicipital tendinitis. 4. Grade 4 chondromalacia, glenohumeral joint, left shoulder. PROCEDURE: 1. Arthroscopy, left shoulder with arthroscopic debridement, partial supraspinatus tendon tear, left shoulder. 2. Arthroscopic biceps tenotomy, left shoulder. 3. Arthroscopic subacromial decompression, left shoulder. 4. Arthroscopic chondroplasty, left shoulder with debridement of labral tear. SURGEON: Helene Akhtar DO PSYCHIC READER: MONE Chakraborty ANESTHESIA: General with interscalene block. INDICATIONS AND FINDINGS: The patient is a 61-year-old male seen with chief complaint of progressive left shoulder pain, nonresponsive to conservative treatment. An MRI evaluation of left shoulder revealed partial tearing of the supraspinatus tendon with increased signal about the superior labrum and degenerative changes of the glenohumeral joint with degenerative changes of the acromioclavicular joint with subacromial spur formation and secondary impingement. The patient was taken to surgery where an arthroscopy of the left shoulder was performed and the patient demonstrated no evidence of tearing on the undersurface of the supraspinatus tendon and the infraspinatus tendon or the subscapularis tendon. The patient demonstrated partial tearing of the superior aspect of the supraspinatus tendon. There was erythema on the biceps tendon. There was detachment of the superior labral attachment at the glenoid consistent with a type 2 SLAP tear. The patient also had loss of articular cartilage over the superior most aspect of the glenoid in an area measuring approximately 6 mm x 5 mm. The patient had degenerative tearing of the labrum anteriorly throughout the entire anterior aspect of the glenoid. There was significant loss of articular cartilage of the humeral head with exposed bone over the majority of the articular surface contacting the glenoid. The patient had loose chondral slaps surrounding this. A chondroplasty of the glenoid and the humeral head was performed. A biceps tenotomy was completed. The superior (bursal surface) of the supraspinatus tendon was debrided and a subacromial decompression was completed as well with the labral debridement. PROCEDURE IN DETAIL: The patient was seen by anesthesia preoperatively and under ultrasound guidance an interscalene block was performed in the left shoulder to decrease postoperative pain and decrease the amount of medication required during the surgical procedure. The patient was transported to the operating room where general inhalation anesthetic was administered. The patient was placed in a right lateral decubitus position and secured to the operating table with the [facility] raya bag. The left arm was then placed in slight abduction and slight forward flexion with 10 pounds of traction weight maintaining the arm in position. A chloraprep and sterile drape of the left shoulder and left upper extremity was performed. The surface landmarks of the left shoulder were then traced on the skin. A posterior arthroscopic portal site was chosen. An 18 gauge spinal needle was inserted and a total of 50 mL of normal saline was insufflated into the glenohumeral joint. The needle was removed. A stab incision was made at this location. A blunt obturator and cannula were inserted through the posterior portal in the glenohumeral joint and the arthroscope was inserted. A Wissinger adolfo was used to develop an anterior inferior arthroscopic portal site through which an operating cannula was inserted. The subscapularis tendon demonstrated no evidence of injury. The posterior labrum push demonstrated intact subscapularis tendon as well. The outer surface of the supraspinatus and infraspinatus tendon demonstrated no abnormalities. The biceps tendon itself was not torn. The attachment at the superior labrum was disrupted consistent with a type 2 SLAP tear. The tendon was pulled in the shoulder and bicipital tendinitis with erythema surrounding the tendon was identified. A full radius synovial shaver was inserted, the labral tearing over the anterior, superior and posterior aspect of the labrum was debrided. A biceps tenotomy was completed. The debridement was completed with the bipolar cautery. A full radius synovial shaver was used to debride the glenoid articular cartilage superiorly as well as the humeral head where there was a large defect throughout the majority of the articulating surface of the humerus against the glenoid. This chondroplasty was completed with the bipolar cautery unit. The arthroscope was then repositioned through the posterior portal into the subacromial region. An accessory lateral portal was established, an operating cannula was inserted, hypertrophic bursal tissue was excised. The superior aspect of the rotator cuff tendon (supraspinatus tendon) demonstrated minor partial tearing. The coracoacromial ligament was released. The anterior inferior acromioplasty was performed, removing bone from the undersurface of the acromion to the level of the acromioclavicular joint with both a motorized kishore as well as the full radius synovial shaver. At the completion of the procedure, the shoulder was additionally irrigated with normal saline solution and drained. The arthroscopic portal sites were closed with horizontal mattress sutures of 3-0 nylon and Adaptic, Neosporin and a bulky dressing was placed about the left shoulder. The arm was placed in a sling. The patient was awakened and was transported to postoperative recovery with anesthesia personnel present, in satisfactory condition. Job ID: [id number] DocumentID: [id number] Dictated Date: 05/23/2017 15:45:58 Trains Dispatcher Supervisor Date: 05/24/2017 08:01:56 Dictated By: HELENE AKHTAR DO <Dictated by HELENE AKHTAR DO> <Electronically signed by HELENE AKHTAR DO> 05/24/17 1112
== END 2017-05-23 11:30 | disposition home or self-care (01) ==
LOC: SDC 06:00
PROVIDERS: ATTEND Orthopaedic Surgery
DX: M94.212 Chondromalacia, left shoulder; Z95.5 Presence of coronary angioplasty implant and graft; K21.9 Gastro-esophageal reflux disease without esophagitis; S43.492A Other sprain of left shoulder joint, initial encounter; I10 Essential (primary) hypertension; M75.42 Impingement syndrome of left shoulder; M19.012 Primary osteoarthritis, left shoulder; Z79.02 Long term (current) use of antithrombotics/antiplatelets; E78.00 Pure hypercholesterolemia, unspecified; M75.22 Bicipital tendinitis, left shoulder; M10.9 Gout, unspecified; X58.XXXA Exposure to other specified factors, initial encounter; Z79.899 Other long term (current) drug therapy; I25.2 Old myocardial infarction; I25.10 Atherosclerotic heart disease of native coronary artery without angina pectoris; S43.432A Superior glenoid labrum lesion of left shoulder, initial encounter

== ENCOUNTER 2017-07-14 11:23 | Outpatient (RCR) | payer OTHER ==
[~2017-07-14 11:23] MED LIST changes: +HYDR-753 PO; +ONDA8TAB9 PO
== END 2017-08-22 10:11 | disposition home or self-care (01) ==
PROVIDERS: ATTEND Nurse Practitioner Family
DX: Z47.89 Encounter for other orthopedic aftercare (principal)

== ENCOUNTER → 2018-02-22 | Outpatient (CLI) | payer OTHER | LOC: CARD 10:35 | PROVIDERS: ATTEND Physician Assistant | DX: I25.10 Atherosclerotic heart disease of native coronary artery without angina pectoris (principal); I10 Essential (primary) hypertension; E78.5 Hyperlipidemia, unspecified; K21.9 Gastro-esophageal reflux disease without esophagitis; I07.1 Rheumatic tricuspid insufficiency | CPT/HCPCS: 93306 ==

== ENCOUNTER 2018-05-08 17:02 | Emergency (ER) | payer OTHER ==
[~2018-05-08] VITALS: Ht 182.9 cm; Wt 90.7 kg
[~2018-05-08 17:02] MED LIST changes: +HYDR-4196 PO; -HYDR-753 PO
--- NOTE | 2018-05-08 17:34 | ED Abdominal Pain ---
General Chief Complaint: Abdominal/GI Problems Stated Complaint: LOWER ABD PAIN Source of Information: Patient Exam Limitations: No Limitations History of Present Illness Date Seen by Provider: May 08, 2018 Time Seen by Provider: 17:33 Initial Comments Patient is a 62-year-old male who presents to the emergency room with complaints of abdominal pain. He was sent over to the emergency room from Dr. Tiwari's office with reports of increasing left lower quadrant, suprapubic, and right lower quadrant abdominal pain for the past 2 days. He reports that he did eat some popcorn a few days ago and that Dr. Tiwari was concerned with diverticulitis. He has had regular bowel movements for the past 2 days. He reports that the abdominal pain becomes worse when he takes a deep inspiration. Timing/Duration: 1-2 Days Severity/Quality: Sharp Location: RLQ, LLQ, Suprapubic Radiation: No Radiation Modifying Factors: Improves With Other (deep breathing worsens the pain) Allergies and Home Medications Allergies Coded Allergies: Penicillins (Verified Allergy, Unknown, 05/11/17) meperidine (Verified Allergy, Unknown, 05/11/17) Home Medications Amlodipine Besylate 10 Mg Tablet, 10 MG PO DAILY, (Reported) Aspirin 81 Mg Tablet., 81 MG PO DAILY Prescribed by: MOO KASPER on 04/02/16 1013 Clopidogrel Bisulfate 75 Mg Tablet, 75 MG PO DAILY Prescribed by: MOO KASPER on 04/02/16 1013 Hydrocodone/Acetaminophen 1 Each Tablet, 1 EACH PO Q4H Prescribed by: BERNARDO WEEKS on 05/23/17 1019 Isosorbide Mononitrate 30 Mg Tab.er.24h, 30 MG PO DAILY Prescribed by: MOO KASPER on 04/02/16 1013 Metoprolol Succinate 50 Mg Tab.er.24h, 50 MG PO DAILY Prescribed by: NIXON NICK on 05/01/16 1207 Ondansetron 8 Mg Tab.rapdis, 8 MG PO Q6H Prescribed by: BERNARDO WEEKS on 05/23/17 1019 Pantoprazole Sodium 40 Mg Tablet., 40 MG PO DAILY@0700 Prescribed by: MOO KASPER on 04/02/16 1013 Rosuvastatin Calcium 5 Mg Tablet, 5 MG PO DAILY, (Reported) Patient Home Medication List Home Medication List Reviewed: Yes Review of Systems Review of Systems Constitutional: see HPI; No chills, No fever Gastrointestinal: See HPI, Abdominal Pain; Denies Constipated, Denies Diarrhea , Denies Nausea, Denies Vomiting Past Vsncnlb-Eepxav-Gldndk Hx Past Med/Social Hx: Reviewed Nursing Past Med/Soc Hx Patient Social History Former Smoker, Quit: Mar 31, 1976 Recent Foreign Travel: No Contact w/Someone Who Travel: No Recent Hopitalizations: No Immunizations Up To Date Tetanus Booster (TDap): More than 5yrs PED Vaccines UTD: No Seasonal Allergies Seasonal Allergies: No Past Medical History Surgeries: Yes Coronary Stent Respiratory: No Cardiac: Yes Coronary Artery Disease, High Cholesterol, Hypertension Neurological: No Reproductive Disorders: No Sexually Transmitted Disease: No HIV/AIDS: No Kidney Stones Gastrointestinal: No Musculoskeletal: No Endocrine: No Loss of Vision: Bilateral Hearing Impairment: Denies Cancer: No Psychosocial: No Integumentary: No Blood Disorders: No Adverse Reaction/Blood Tranf: No (N/A) Family Medical History Reviewed Nursing Family Hx CAD Under 55 Years Old Physical Exam Vital Signs Vital Signs - First Documented 05/08/18 17:28 Temp 98.4 Pulse 69 Resp 20 B/P (MAP) 144/95 (111) Pulse Ox 95 O2 Delivery Room Air Capillary Refill : Height/Weight/BMI Height: 6'0.00" Weight: 207lbs. 1.0oz. 93.713502oy; 28.1 BMI Method:Stated General Appearance: WD/WN, no apparent distress Respiratory: chest non-tender, lungs clear, normal breath sounds, no respiratory distress, no accessory muscle use Cardiovascular: normal peripheral pulses, regular rate, rhythm, no edema, no gallop, no JVD, no murmur Gastrointestinal: normal bowel sounds, soft, no organomegaly, no pulsatile mass , tenderness (left lower quadrant abdominal pain with deep palpitation.) Neurologic/Psychiatric: alert, normal mood/affect, oriented x 3 Skin: normal color, warm/dry Progress/Results/Core Measures Results/Orders Lab Results Laboratory Tests Test 05/08/18 17:52 05/08/18 18:00 Range/Units White Blood Count 8.5 4.3-11.0 10^3/uL Red Blood Count 5.15 4.35-5.85 10^6/uL Hemoglobin 16.3 13.3-17.7 G/DL Hematocrit 47 40-54 % Mean Corpuscular Volume 91 80-99 FL Mean Corpuscular Hemoglobin 32 25-34 PG Mean Corpuscular Hemoglobin Concent 35 32-36 G/DL Red Cell Distribution Width 13.6 10.0-14.5 % Platelet Count 223 130-400 10^3/uL Mean Platelet Volume 11.2 H 7.4-10.4 FL Neutrophils (%) (Auto) 72 42-75 % Lymphocytes (%) (Auto) 17 12-44 % Monocytes (%) (Auto) 9 0-12 % Eosinophils (%) (Auto) 2 0-10 % Basophils (%) (Auto) 1 0-10 % Neutrophils # (Auto) 6.2 1.8-7.8 X 10^3 Lymphocytes # (Auto) 1.4 1.0-4.0 X 10^3 Monocytes # (Auto) 0.8 0.0-1.0 X 10^3 Eosinophils # (Auto) 0.2 0.0-0.3 10^3/uL Basophils # (Auto) 0.0 0.0-0.1 10^3/uL Sodium Level 138 135-145 MMOL/L Potassium Level 4.0 3.6-5.0 MMOL/L Chloride Level 104 98-107 MMOL/L Carbon Dioxide Level 23 21-32 MMOL/L Anion Gap 11 5-14 MMOL/L Blood Urea Nitrogen 12 7-18 MG/DL Creatinine 1.43 H 0.60-1.30 MG/DL Estimat Glomerular Filtration Rate 50 BUN/Creatinine Ratio 8 Glucose Level 94 70-105 MG/DL Calcium Level 9.6 8.5-10.1 MG/DL Corrected Calcium 9.2 8.5-10.1 MG/DL Total Bilirubin 0.6 0.1-1.0 MG/DL Aspartate Amino Transf (AST/SGOT) 29 5-34 U/L Alanine Aminotransferase (ALT/SGPT) 42 0-55 U/L Alkaline Phosphatase 82 40-136 U/L Total Protein 8.1 6.4-8.2 GM/DL Albumin 4.5 3.2-4.5 GM/DL Amylase Level 87 25-125 U/L Lipase 50 8-78 U/L Urine Color YELLOW Urine Clarity CLEAR Urine pH 6.5 5-9 Urine Specific [place] 1.015 L 1.016-1.022 Urine Protein 1+ H NEGATIVE Urine Glucose (UA) NEGATIVE NEGATIVE Urine Ketones NEGATIVE NEGATIVE Urine Nitrite NEGATIVE NEGATIVE Urine Bilirubin NEGATIVE NEGATIVE Urine Urobilinogen 1 NORMAL MG/DL Urine Leukocyte Esterase NEGATIVE NEGATIVE Urine RBC (Auto) NEGATIVE NEGATIVE Urine RBC NONE /HPF Urine WBC NONE /HPF Urine Squamous Epithelial Cells RARE /HPF Urine Crystals NONE /LPF Urine Bacteria NONE /HPF Urine Casts NONE /LPF Urine Mucus SMALL H /LPF Urine Culture Indicated NO My Orders Orders - ANN MARIE MAY Comprehensive Metabolic Panel (05/08/18 17:32) Lipase (05/08/18 17:32) Amylase (05/08/18 17:32) Ua Culture If Indicated (05/08/18 17:32) Saline Lock/Iv-Start (05/08/18 17:32) Cbc With Automated Diff (05/08/18 17:32) Ct Abdomen/Pelvis W (05/08/18 17:32) Iohexol Injection (Omnipaque 350 Mg/Ml 1 (05/08/18 18:45) Medications Given in ED Vital Signs/I&O 05/08/18 05/08/18 17:28 19:29 Temp 98.4 98.2 Pulse 69 66 Resp 20 18 B/P (MAP) 144/95 (111) 154/93 (111) Pulse Ox 95 94 O2 Delivery Room Air Room Air Progress Progress Note : Time: 19:00 Progress Note I have seen and evaluated the patient. I have discussed the ct findings with the patient and his . I have informed him of normal laboratory findings. I have instructed him to follow up with Dr. Fuentes to discuss the findings of his CT for further evaluation and possible treatment. He agrees with plan of care and return precautions were given. Diagnostic Imaging Diagonstic Imaging: CT Plain Films/CT/US/NM/MRI: abdomen, pelvis Comments NAME: ALISHA TERESA MED REC#: [id number] PT STATUS: REG ER : 1955 PHYSICIAN: ANN MARIE MAY ADMIT DATE: 05/08/18/ER Draft Date of Exam:05/08/18 CT ABDOMEN/PELVIS W PROCEDURE: CT abdomen and pelvis with contrast. TECHNIQUE: Multiple contiguous axial images were obtained through the abdomen and pelvis after administration of intravenous contrast. INDICATION: Right lower quadrant and left lower quadrant pain. COMPARISON: Comparison is made with prior CT from 04/08/2016. FINDINGS: There is linear scarring versus subsegmental atelectasis in bilateral lower lobes. The liver demonstrates generalized low density consistent with hepatic steatosis. No discrete liver mass is identified. The gallbladder is unremarkable. The pancreas and spleen are unremarkable. A small accessory spleen is noted and similar to prior. No adrenal mass is identified. Calcific foci are identified in both kidneys consistent with nonobstructing calculi. Circumscribed low-density mass in the lower pole of the right kidney is noted measuring 4.1 cm compared with 3.3 cm on prior. This is consistent with an enlarging cyst. No ureteral or bladder calculi are identified. The aorta is calcified but nonaneurysmal. The small and large bowel loops are normal in caliber. Appendix is visualized and unremarkable. There is significant diverticulosis of the sigmoid colon and descending colon; however, there is no evidence of acute diverticulitis. Prostate is unremarkable. There is a fat-containing left inguinal hernia. IMPRESSION: 1. Bibasilar atelectasis. 2. Hepatic steatosis. 3. Nonobstructing bilateral renal calculi. No hydronephrosis or ureteral calculi are seen. 4. Enlarging right renal cyst. 5. Uncomplicated diverticulosis. 6. Fat-containing left inguinal hernia. Dictated on workstation # [id number] Dict: 05/08/18 1855 Trans: 05/08/18 [id number] Interpreted by: PJ DRUMMOND MD Electronically signed by: Reviewed: Reviewed by Me Departure Impression Primary Impression: Abdominal pain Disposition: 01 HOME, SELF-CARE Condition: Stable/Unchanged Departure-Patient Inst. Decision time for Depature: 19:09 Referrals: RENE TIWARI DO (PCP) Primary Care Physician Patient Instructions: Acute Abdomen (Belly Pain), Adult (DC) Add. Discharge Instructions: Follow-up with Dr. Tiwari within 1 week for recheck to discuss the CT findings. Return back to the emergency room for any worsening symptoms or concerns as needed. All discharge instructions reviewed with patient and/or family. Voiced understanding. Copy Copies To 1: RENE TIWARI TRAVIS May 08, 2018 17:34
[2018-05-08 18:06] LABS: BASOPHILS % (AUTO) 1 % (0-10); EOSINOPHILS # (AUTO) 0.2 10^3/uL (0.0-0.3); EOSINOPHILS % (AUTO) 2 % (0-10); HEMATOCRIT 47 % (40-54); HEMOGLOBIN 16.3 G/DL (13.3-17.7); LYMPHOCYTES # (AUTO) 1.4 X 10^3 (1.0-4.0); LYMPHOCYTES % (AUTO) 17 % (12-44); MEAN CORPUSCULAR HEMOGLOBIN 32 PG (25-34); MEAN CORPUSCULAR HGB CONC 35 G/DL (32-36); MEAN CORPUSCULAR VOLUME 91 FL (80-99); MEAN PLATELET VOLUME 11.2 FL (7.4-10.4); MONOCYTES # (AUTO) 0.8 X 10^3 (0.0-1.0); MONOCYTES % (AUTO) 9 % (0-12); NEUTROPHILS # (AUTO) 6.2 X 10^3 (1.8-7.8); NEUTROPHILS % (AUTO) 72 % (42-75); PLATELET COUNT 223 10^3/uL (130-400); RED BLOOD COUNT 5.15 10^6/uL (4.35-5.85); RED CELL DISTRIBUTION WIDTH 13.6 % (10.0-14.5); WHITE BLOOD COUNT 8.5 10^3/uL (4.3-11.0)
[2018-05-08 18:08] LABS: BILIRUBIN,URINE NEGATIVE (NEGATIVE); CLARITY,URINE CLEAR; COLOR,URINE YELLOW; GLUCOSE, URINE (UA) NEGATIVE (NEGATIVE); KETONES,URINE NEGATIVE (NEGATIVE); LEUKOCYTE ESTERASE ,URINE NEGATIVE (NEGATIVE); NITRITE,URINE NEGATIVE (NEGATIVE); PH,URINE 6.5 (5-9); PROTEIN,URINE 1+ (NEGATIVE); UROBILINOGEN,URINE 1 MG/DL (NORMAL)
[2018-05-08 18:16] LABS: SQUAMOUS EPITHELIAL CELL,UR RARE /HPF
[2018-05-08 18:25] LABS: ALBUMIN 4.5 GM/DL (3.2-4.5); BILIRUBIN,TOTAL 0.6 MG/DL (0.1-1.0); CALCIUM 9.6 MG/DL (8.5-10.1); CREATININE SERUM 1.43 MG/DL (0.60-1.30); TOTAL PROTEIN 8.1 GM/DL (6.4-8.2)
[2018-05-08] MEDS ORDERED: IOHEXOL 350 MG/ML 100 ML (OMNIPAQUE 350) VIAL IV ONE (18:45)
--- NOTE | 2018-05-08 19:03 | Diagnostic Imaging Report ---
PROCEDURE: CT abdomen and pelvis with contrast. TECHNIQUE: Multiple contiguous axial images were obtained through the abdomen and pelvis after administration of intravenous contrast. INDICATION: Right lower quadrant and left lower quadrant pain. COMPARISON: Comparison is made with prior CT from 04/08/2016. FINDINGS: There is linear scarring versus subsegmental atelectasis in bilateral lower lobes. The liver demonstrates generalized low density consistent with hepatic steatosis. No discrete liver mass is identified. The gallbladder is unremarkable. The pancreas and spleen are unremarkable. A small accessory spleen is noted and similar to prior. No adrenal mass is identified. Calcific foci are identified in both kidneys consistent with nonobstructing calculi. Circumscribed low-density mass in the lower pole of the right kidney is noted measuring 4.1 cm compared with 3.3 cm on prior. This is consistent with an enlarging cyst. No ureteral or bladder calculi are identified. The aorta is calcified but nonaneurysmal. The small and large bowel loops are normal in caliber. Appendix is visualized and unremarkable. There is significant diverticulosis of the sigmoid colon and descending colon; however, there is no evidence of acute diverticulitis. Prostate is unremarkable. There is a fat-containing left inguinal hernia. IMPRESSION: 1. Bibasilar atelectasis. 2. Hepatic steatosis. 3. Nonobstructing bilateral renal calculi. No hydronephrosis or ureteral calculi are seen. 4. Enlarging right renal cyst. 5. Uncomplicated diverticulosis. 6. Fat-containing left inguinal hernia. Dictated by: Dictated on workstation # [id number]
[2018-05-08 19:29] VITALS: BP 154/93
--- OUTSIDE RECORDS SUMMARY | 2018-05-08 21:59 | XMS REPORT | Continuity of Care Document ---
Author Author [facility] Organization [facility] Address Unknown Phone Unavailable Allergies Active Description Code Type Severity Reaction Onset Reported/Identified Relationship to Patient Clinical Status Yes meperidine [id number] Drug Allergy Unknown N/A 05/11/2017 Yes Penicillins [id number] Drug Allergy Unknown N/A 05/11/2017 Medications There is no data. Problems Date Dx Coded Attending Type Code Diagnosis Diagnosed By 08/03/1010 NISHANT FERNÁNDEZ APRN Ot Z47.89 ENCOUNTER FOR OTHER ORTHOPEDIC AFTERCARE 10/21/2014 RENE TIWARI DO Ot 715.36 10/21/2014 GELLENDER RENE MCKEE Ot 717.1 10/21/2014 GELLENDER DORENE Ot 717.2 10/21/2014 GELLENDER DORENE Ot 727.51 09/01/2015 GELLENDER DORENE Ot 715.36 09/01/2015 GELLENDER DORENE Ot 717.1 09/01/2015 GELLENDER DORENE Ot 717.2 09/01/2015 GELLENDER DORENE Ot 727.51 03/31/2016 GELLENDER RENE MCKEE Ot 715.36 LOC OSTEOARTH NOS-L/LEG 03/31/2016 GELMEGHANADER RENE MCKEE Ot 717.1 DERANG ANT MED MENISCUS 03/31/2016 GELLENDER DORENE Ot 717.2 DERANG POST MED MENISCUS 03/31/2016 GELLENDER RENE MCKEE Ot 727.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 04/02/2016 MOO KASPER MD Ot E78.5 HYPERLIPIDEMIA, UNSPECIFIED 04/02/2016 MOO KASPER MD Ot I10 ESSENTIAL (PRIMARY) HYPERTENSION 04/02/2016 MOO KASPER MD Ot I21.19 STEMI INVOLVING OTH CORONARY ARTERY OF I 04/02/2016 MOO KASPER MD Ot I25.10 ATHSCL HEART DISEASE OF [place] CORONARY 04/02/2016 MOO KASPER MD Ot I25.82 CHRONIC TOTAL OCCLUSION OF CORONARY [place] 04/02/2016 MOO KASPER MD Ot K21.9 GASTRO-ESOPHAGEAL REFLUX DISEASE WITHOUT 04/02/2016 MOO KASPER MD, Ot Z87.891 PERSONAL HISTORY OF NICOTINE DEPENDENCE 04/02/2016 MOO KASPER MD Ot E78.5 HYPERLIPIDEMIA, UNSPECIFIED 04/02/2016 MOO KASPER MD Ot I10 ESSENTIAL (PRIMARY) HYPERTENSION 04/02/2016 MOO KASPER MD Ot I21.19 STEMI INVOLVING OTH CORONARY ARTERY OF I 04/02/2016 MOO KASPER MD Ot I25.10 ATHSCL HEART DISEASE OF [place] CORONARY 04/02/2016 MOO KASPER MD, Ot I25.82 [...] INT W/O PERFORATION OR AB 04/08/2016 CHRIS BRAXTON MD Ot N20.2 CALCULUS OF KIDNEY WITH CALCULUS OF URET 04/08/2016 CHRIS BRAXTON MD Ot R10.31 RIGHT LOWER QUADRANT PAIN 04/13/2016 CHRIS BRAXTON MD Ot N20.0 CALCULUS OF KIDNEY 04/20/2016 ALISTAIR MULLEN MD, Ot N20.2 CALCULUS OF KIDNEY WITH CALCULUS OF URET 04/21/2016 ALISTAIR MULLEN MD, Ot Z53.9 PROCEDURE AND TREATMENT NOT CARRIED OUT, 05/01/2016 NIXON KASPER MD, Ot I10 ESSENTIAL (PRIMARY) HYPERTENSION 05/01/2016 RANJITH HINSON, NIXON Baeza Ot R04.0 EPISTAXIS 05/01/2016 NIXON KASPER MD, Ot Z79.01 GROUP HOME (CURRENT) USE OF ANTICOAGULANT 05/01/2016 GELLENDER DO, RENE A Ot 715.36 LOC OSTEOARTH NOS-L/LEG 05/01/2016 GELLENDER DO, RENE A Ot 717.1 DERANG ANT MED MENISCUS 05/01/2016 GELLENDER DO, RENE A Ot 717.2 DERANG POST MED MENISCUS 05/01/2016 GELLENTONG DO, RENE A Ot 727.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 05/01/2016 IRAIS HINSON, CHRIS Cabezas Ot K40.90 UNIL INGUINAL HERNIA, W/O OBST OR GANGR, 05/01/2016 IRAIS HINSON, CHRIS Cabezas Ot K44.9 DIAPHRAGMATIC HERNIA WITHOUT OBSTRUCTION 05/01/2016 IRAIS HINSON, CHRIS Cabezas Ot K57.30 DVRTCLOS OF LG INT W/O PERFORATION OR AB 05/01/2016 CHRIS BRAXTON MD Ot N20.2 CALCULUS OF KIDNEY WITH CALCULUS OF URET 05/01/2016 IRAIS HINSON, CHRIS Cabezas Ot R10.31 RIGHT LOWER QUADRANT PAIN 05/01/2016 IRAIS HINSON, CHRIS Cabezas Ot N20.0 CALCULUS OF KIDNEY 05/01/2016 ALISTAIR MULLEN MD, Ot Z53.9 PROCEDURE AND TREATMENT NOT CARRIED OUT, 05/01/2016 ALISTAIR MULLEN MD, Ot N20.2 CALCULUS OF KIDNEY WITH CALCULUS OF URET 05/03/2016 RANJITH HINSON, NIXON Baeza Ot I10 ESSENTIAL (PRIMARY) HYPERTENSION 05/03/2016 NIXON KASPER MD Ot R04.0 EPISTAXIS 05/03/2016 NIXON KASPER MD, Ot 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.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 06/01/2016 RANJITH HINSON, MOO Michelle Ot E78.5 HYPERLIPIDEMIA, UNSPECIFIED 06/01/2016 MOO KASPER MD, Ot I10 ESSENTIAL (PRIMARY) HYPERTENSION 06/01/2016 MOO KASPER MD Ot I21.3 ST ELEVATION (STEMI) MYOCARDIAL INFARCTI 06/01/2016 MOO KASPER MD, Ot I25.10 ATHSCL HEART DISEASE OF [place] CORONARY 06/01/2016 MOO KASPER MD, Ot K21.9 GASTRO-ESOPHAGEAL REFLUX DISEASE WITHOUT 11/04/2016 YOHAN QUINTERO Ot R74.8 ABNORMAL LEVELS OF OTHER SERUM ENZYMES 02/10/2017 GELLENDER DORENE Ot 715.36 LOC OSTEOARTH NOS-L/LEG 02/10/2017 GELLENDER RENE MCKEE Ot 717.1 DERANG ANT MED MENISCUS 02/10/2017 GELLENDER DORENE Ot 717.2 DERANG POST MED MENISCUS 02/10/2017 GELLENDER RENE MCKEE Ot 727.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 02/10/2017 IRAIS HINSON, CHRIS Cabezas Ot N20.0 CALCULUS OF KIDNEY 02/10/2017 ALISTAIR MULLEN MD Ot Z53.9 PROCEDURE AND TREATMENT NOT CARRIED OUT, 02/10/2017 ALISTAIR MULLEN MD, Ot N20.2 CALCULUS OF KIDNEY WITH CALCULUS OF URET 02/10/2017 MOO KASPER MD, Ot E78.5 HYPERLIPIDEMIA, UNSPECIFIED 02/10/2017 MOO KASPER MD, Ot I10 ESSENTIAL (PRIMARY) HYPERTENSION 02/10/2017 MOO KASPER MD, Ot I21.3 ST ELEVATION (STEMI) MYOCARDIAL INFARCTI 02/10/2017 MOO KASPER MD, Ot I25.10 ATHSCL HEART DISEASE OF [place] CORONARY 02/10/2017 MOO KASPER MD, Ot K21.9 GASTRO-ESOPHAGEAL REFLUX DISEASE WITHOUT 02/10/2017 YOHAN QUINTERO Ot R74.8 ABNORMAL LEVELS OF OTHER SERUM ENZYMES 02/10/2017 DIANLENRENE FORTUNE DO Ot 715.36 LOC OSTEOARTH NOS-L/LEG 02/10/2017 DIANLENRENE FORTUNE DO Ot 717.1 DERANG ANT MED MENISCUS 02/10/2017 GELLENDER DORENE Ot 717.2 DERANG POST MED MENISCUS 02/10/2017 GELLENDER DORENE Ot 727.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 02/10/2017 CHRIS BRAXTON MD Ot N20.0 CALCULUS OF KIDNEY 02/10/2017 ALISTAIR MULLEN MD, Ot Z53.9 PROCEDURE AND TREATMENT NOT CARRIED OUT, 02/10/2017 ALISTAIR MULLEN MD Ot N20.2 CALCULUS OF KIDNEY WITH CALCULUS OF URET 02/10/2017 MOO KASPER MD Ot E78.5 HYPERLIPIDEMIA, UNSPECIFIED 02/10/2017 MOO KASPER MD Ot I10 ESSENTIAL (PRIMARY) HYPERTENSION 02/10/2017 MOO KASPER MD Ot I21.3 ST ELEVATION (STEMI) MYOCARDIAL INFARCTI 02/10/2017 MOO KASPER MD Ot I25.10 ATHSCL HEART DISEASE OF [place] CORONARY 02/10/2017 MOO KASPER MD Ot K21.9 GASTRO-ESOPHAGEAL REFLUX DISEASE WITHOUT 02/10/2017 YOHAN QUINTERO Ot R74.8 ABNORMAL LEVELS OF OTHER SERUM ENZYMES 02/10/2017 RENE TIWARI DO Ot 715.36 LOC OSTEOARTH NOS-L/LEG 02/10/2017 RENE TIWARI DO Ot 717.1 DERANG ANT MED MENISCUS 02/10/2017 RENE TIWARI DO Ot 717.2 DERANG POST MED MENISCUS 02/10/2017 RENE TIWARI DO Ot 727.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 02/10/2017 IRAIS HINSON, CHRIS Cabezas Ot N20.0 CALCULUS OF KIDNEY 02/10/2017 ALISTAIR [...] MD Ot I25.10 ATHSCL HEART DISEASE OF [place] CORONARY 02/10/2017 MOO KASPER MD Ot K21.9 GASTRO-ESOPHAGEAL REFLUX DISEASE WITHOUT 02/10/2017 YOHAN QUINTERO Ot R74.8 ABNORMAL LEVELS OF OTHER SERUM ENZYMES 03/15/2017 NIXON KASPER MD Ot E78.00 PURE HYPERCHOLESTEROLEMIA, UNSPECIFIED 03/15/2017 NIXON KASPER MD Ot I10 ESSENTIAL (PRIMARY) HYPERTENSION 03/15/2017 NIXON KASPER MD Ot I25.10 ATHSCL HEART DISEASE OF [place] CORONARY 03/15/2017 NIXON KASPER MD Ot R04.0 EPISTAXIS 03/15/2017 NIXON KASPER MD Ot Z79.82 GROUP HOME (CURRENT) USE OF ASPIRIN 03/15/2017 NIXON KASPER MD Ot Z87.891 PERSONAL HISTORY OF NICOTINE DEPENDENCE 03/15/2017 NIXON KASPER MD Ot Z95.1 PRESENCE OF AORTOCORONARY BYPASS GRAFT 03/15/2017 NIXON KASPER MD Ot Z98.890 OTHER SPECIFIED POSTPROCEDURAL STATES 03/17/2017 NIXON KASPER MD Ot E78.00 PURE HYPERCHOLESTEROLEMIA, UNSPECIFIED 03/17/2017 NIXON KASPER MD Ot I10 ESSENTIAL (PRIMARY) HYPERTENSION 03/17/2017 NIXON KSAPER MD Ot I25.10 ATHSCL HEART DISEASE OF [place] CORONARY 03/17/2017 NIXON KASPER MD Ot R04.0 EPISTAXIS 03/17/2017 NIXON KASPER MD Ot 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.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 03/17/2017 NIXON KASPER MD Ot Z87.891 PERSONAL HISTORY OF NICOTINE DEPENDENCE 03/17/2017 NIXON KASPER MD Ot Z95.1 PRESENCE OF AORTOCORONARY BYPASS GRAFT 03/17/2017 NIXON KASPER MD Ot Z98.890 OTHER SPECIFIED POSTPROCEDURAL STATES 04/18/2017 MOO KASPER MD Ot E78.2 MIXED HYPERLIPIDEMIA 04/18/2017 MOO KASPER MD Ot I10 ESSENTIAL (PRIMARY) HYPERTENSION 04/18/2017 MOO KASPER MD Ot I25.10 ATHSCL HEART DISEASE OF [place] CORONARY 05/12/2017 HELENE AKHTAR DO Ot M75.102 UNSP ROTATR-CUFF TEAR/RUPTR OF LEFT SHOU 05/12/2017 HELENE AKHTAR DO Ot Z01.818 ENCOUNTER FOR OTHER PREPROCEDURAL EXAMIN 05/15/2017 MOO KASPER MD Ot E78.2 MIXED HYPERLIPIDEMIA 05/15/2017 MOO KASPER MD Ot I10 ESSENTIAL (PRIMARY) HYPERTENSION 05/15/2017 MOO KASPER MD Ot I25.10 ATHSCL HEART DISEASE OF [place] CORONARY 05/17/2017 HELENE AKHTAR DO Ot M75.102 UNSP ROTATR-CUFF TEAR/RUPTR OF LEFT SHOU 05/17/2017 HELENE AKHTAR DO Ot Z01.818 ENCOUNTER FOR OTHER PREPROCEDURAL EXAMIN 05/23/2017 HELENE AKHTAR DO Ot E78.00 PURE HYPERCHOLESTEROLEMIA, UNSPECIFIED 05/23/2017 HELENE AKHTAR DO Ot I10 ESSENTIAL (PRIMARY) HYPERTENSION 05/23/2017 HELENE AKHTAR DO Ot I25.10 ATHSCL HEART DISEASE OF [place] CORONARY 05/23/2017 HELENE AKHTAR DO Ot I25.2 OLD MYOCARDIAL INFARCTION 05/23/2017 HELENE AKHTAR DO Ot K21.9 GASTRO-ESOPHAGEAL REFLUX DISEASE WITHOUT 05/23/2017 HELENE AKHTAR DO Ot M10.9 GOUT, UNSPECIFIED 05/23/2017 HELENE AKHTAR DO Ot M19.012 PRIMARY OSTEOARTHRITIS, LEFT SHOULDER 05/23/2017 HELENE AKHTAR DO Ot M75.22 BICIPITAL TENDINITIS, LEFT SHOULDER 05/23/2017 HELENE AKHTAR DO Ot M75.42 IMPINGEMENT SYNDROME OF LEFT SHOULDER 05/23/2017 HELENE AKHTAR DO Ot M94.212 CHONDROMALACIA, LEFT SHOULDER 05/23/2017 HELENE AKHTAR DO Ot S43.432A SUPERIOR GLENOID LABRUM LESION OF LEFT S 05/23/2017 HELENE AKHTAR DO Ot S43.492A OTHER SPRAIN OF LEFT SHOULDER JOINT, INI 05/23/2017 HELENE AKHTAR DO Ot X58.XXXA EXPOSURE TO OTHER SPECIFIED FACTORS, INI 05/23/2017 HELENE AKHTAR DO Ot Z79.02 GROUP HOME (CURRENT) USE OF ANTITHROMBOTI 05/23/2017 HERMILO DO HELENE Swan Ot Z79.899 OTHER PIPE INSPECTOR (CURRENT) DRUG THERAPY 05/23/2017 HELENE AKHTAR DO Ot Z95.5 PRESENCE OF CORONARY ANGIOPLASTY IMPLANT 06/15/2017 PRADEEP NISHANT Adrian BINGO CALLER Ot Z47.89 ENCOUNTER FOR OTHER ORTHOPEDIC AFTERCARE 06/16/2017 NISHANT FERNÁNDEZ BINGO CALLER Ot Z47.89 ENCOUNTER FOR OTHER ORTHOPEDIC AFTERCARE 06/17/2017 HELENE AKHTAR DO Ot E78.00 PURE HYPERCHOLESTEROLEMIA, UNSPECIFIED 06/17/2017 HERMILO MCKEE, HELENE Swan Ot I10 ESSENTIAL (PRIMARY) HYPERTENSION 06/17/2017 HELENE AKHTAR DO Ot I25.10 ATHSCL HEART DISEASE OF [place] CORONARY 06/17/2017 HELENE AKHTAR DO Ot I25.2 OLD MYOCARDIAL INFARCTION 06/17/2017 HELENE AKHTAR DO Ot K21.9 GASTRO-ESOPHAGEAL REFLUX DISEASE WITHOUT 06/17/2017 HERMILOHELENE CONCEPCION DO Ot M10.9 GOUT, UNSPECIFIED 06/17/2017 HELENE AKHTAR DO Ot M19.012 PRIMARY OSTEOARTHRITIS, LEFT SHOULDER 06/17/2017 HERMILO MCKEE HELENE Beny Ot M75.22 BICIPITAL TENDINITIS, LEFT SHOULDER 06/17/2017 HERMILO MCKEE HELENE Beny Ot M75.42 IMPINGEMENT SYNDROME OF LEFT SHOULDER 06/17/2017 HELENE AKHTAR DO Ot M94.212 CHONDROMALACIA, LEFT SHOULDER 06/17/2017 HERMILO MCKEE HELENE Beny Ot S43.432A SUPERIOR GLENOID LABRUM LESION OF LEFT S 06/17/2017 HELENE AKHTAR DO Ot S43.492A OTHER SPRAIN OF LEFT SHOULDER JOINT, INI 06/17/2017 HERMILO MCKEE HELENE Beny Ot X58.XXXA EXPOSURE TO OTHER SPECIFIED FACTORS, INI 06/17/2017 HELENE AKHTAR DO Ot 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.02 PIPE INSPECTOR (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) USE OF ANTITHROMBOTI 06/17/2017 HELENE AKHTAR DO Ot Z79.899 OTHER GROUP HOME (CURRENT) DRUG THERAPY 06/17/2017 HELENE AKHTAR DO Ot Z95.5 PRESENCE OF CORONARY ANGIOPLASTY IMPLANT 06/19/2017 RENE TIWARI DO Ot 715.36 LOC OSTEOARTH NOS-L/LEG 06/19/2017 GELLENDER DO, RENE A Ot 717.1 DERANG ANT MED MENISCUS 06/19/2017 KARIE MCKEE, RENE Cabezas Ot 717.2 DERANG POST MED MENISCUS 06/19/2017 KARIE MCKEE, RENE Cabezas Ot 727.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 06/19/2017 IRAIS HINSON, CHRIS Cabeazs Ot N20.0 CALCULUS OF KIDNEY 06/19/2017 PAZ HINSON, ALISTAIR Cabezas Ot Z53.9 PROCEDURE AND TREATMENT NOT CARRIED OUT, 06/19/2017 PAZ HINSON, ALISTAIR Cabezas Ot N20.2 CALCULUS OF KIDNEY WITH CALCULUS OF URET 06/19/2017 MOO KASPER MD Ot E78.5 HYPERLIPIDEMIA, UNSPECIFIED 06/19/2017 MOO KASPER MD Ot I10 ESSENTIAL (PRIMARY) HYPERTENSION 06/19/2017 MOO KASPER MD Ot I21.3 ST ELEVATION (STEMI) MYOCARDIAL INFARCTI 06/19/2017 MOO KASPER MD Ot I25.10 ATHSCL HEART DISEASE OF [place] CORONARY 06/19/2017 MOO KASPER MD Ot K21.9 GASTRO-ESOPHAGEAL REFLUX DISEASE WITHOUT 06/19/2017 YOHAN QUINTREO Ot R74.8 ABNORMAL LEVELS OF OTHER SERUM ENZYMES 06/19/2017 MOO KASPER MD Ot E78.2 MIXED HYPERLIPIDEMIA 06/19/2017 MOO KASPER MD, Ot I10 ESSENTIAL (PRIMARY) HYPERTENSION 06/19/2017 MOO KASPER MD Ot I25.10 ATHSCL HEART DISEASE OF [place] CORONARY 06/19/2017 KARIE MCKEE RENE Raulito Ot R10.11 RIGHT UPPER QUADRANT PAIN 08/01/2017 NISHANT FERNÁNDEZ APRN Ot Z47.89 ENCOUNTER FOR OTHER ORTHOPEDIC AFTERCARE 08/22/2017 NISHANT FERNÁNDEZ APRN Ot Z47.89 ENCOUNTER FOR OTHER ORTHOPEDIC AFTERCARE 02/23/2018 YOHAN QUINTERO Ot E78.5 HYPERLIPIDEMIA, UNSPECIFIED 02/23/2018 YOHAN QUINTERO Ot I07.1 RHEUMATIC TRICUSPID INSUFFICIENCY 02/23/2018 YOHAN QUINTERO Ot I10 ESSENTIAL (PRIMARY) HYPERTENSION 02/23/2018 YOHAN QUINTERO Ot I25.10 ATHSCL HEART DISEASE OF [place] CORONARY 02/23/2018 YOHAN QUINTERO Ot K21.9 GASTRO-ESOPHAGEAL REFLUX DISEASE WITHOUT 03/28/2018 YOHAN QUINTERO Ot E78.5 HYPERLIPIDEMIA, UNSPECIFIED 03/28/2018 YOHAN QUINTERO Ot I07.1 RHEUMATIC TRICUSPID INSUFFICIENCY 03/28/2018 YOHAN QUINTERO Ot I10 ESSENTIAL (PRIMARY) HYPERTENSION 03/28/2018 YOHAN QUINTERO Ot I25.10 ATHSCL HEART DISEASE OF [place] CORONARY 03/28/2018 YOHAN QUINTERO Ot K21.9 GASTRO-ESOPHAGEAL REFLUX DISEASE WITHOUT Procedures Code Description Performed By Performed On [id number] DILATION OF 1 COR ART WITH DRUG-ELUT INT 03/31/2016 [id number] MEASURE OF CARDIAC SAMPL PRESSURE, R H 03/31/2016 [id number] FLUOROSCOPY OF SINGLE CORONARY ARTERY US 03/31/2016 [id number] FLUOROSCOPY OF LEFT HEART USING LOW OSMO 03/31/2016 Results Test Result Range Complete blood count (CBC) with automated white blood cell (WBC) differential - 03/31/16 19:08 Blood leukocytes automated count (number/volume) 7.6 10*3/uL 4.3-11.0 Blood erythrocytes automated count (number/volume) 4.96 10*6/uL 4.35-5.85 Venous blood hemoglobin measurement (mass/volume) 15.5 [...] Automated blood platelet mean volume measurement 11.4 [foz_us] 7.4-10.4 Automated blood neutrophils/100 leukocytes 56 % [...] Serum or plasma sodium measurement (moles/volume) 139 mmol/L 135-145 Serum or plasma potassium measurement (moles/volume) 4.2 mmol/L 3.6-5.0 Serum or plasma chloride measurement (moles/volume) 104 mmol/L 98-107 Carbon dioxide 27 mmol/L 21-32 Serum or plasma anion gap determination (moles/volume) 8 mmol/L 5-14 Serum or plasma urea nitrogen measurement (mass/volume) 17 mg/dL 7-18 Serum or plasma creatinine measurement (mass/volume) 1.60 mg/dL 0.60-1.30 Serum or plasma urea nitrogen/creatinine mass [...] or plasma troponin i.cardiac measurement (mass/volume) 0.69 ng /mL <0.30 Myoglobin, serum - 03/31/16 19:08 Myoglobin, serum 112.4 ng/mL 10.0-92.0 Automated blood complete blood count (hemogram) panel - 04/01/16 04:06 Blood leukocytes automated count (number/volume) 11.5 10*3/uL 4.3-11.0 Blood erythrocytes automated count (number/volume) 4.29 10*6/uL 4.35-5.85 Venous blood hemoglobin measurement (mass/volume) 13.8 [...] Automated blood platelet mean volume measurement 11.4 [foz_us] 7.4-10.4 Whole blood basic metabolic panel - 04/01/16 04:06 Serum or plasma sodium measurement (moles/volume) 139 mmol/L 135-145 Serum or plasma potassium measurement (moles/volume) 4.2 mmol/L 3.6-5.0 Serum or plasma chloride measurement (moles/volume) 107 mmol/L 98-107 Carbon dioxide 24 mmol/L 21-32 Serum or plasma anion gap determination (moles/volume) 8 mmol/L 5-14 Serum or plasma urea nitrogen measurement (mass/volume) 16 mg/dL 7-18 Serum or plasma creatinine measurement (mass/volume) 1.18 mg/dL 0.60-1.30 Serum or plasma urea nitrogen/creatinine mass [...] Serum or plasma cholesterol measurement (mass/volume) 170 mg/dL < 200 Serum or plasma cholesterol in HDL measurement (mass/volume) 37 mg/ dL 40-60 Cholesterol in LDL [mass/volume] in serum or plasma by direct assay 97 mg/dL 1-129 Serum or plasma cholesterol in VLDL measurement (mass/volume) 39 mg/ dL 5-40 Automated blood complete blood count (hemogram) panel - 04/02/16 04:09 Blood leukocytes automated count (number/volume) 8.6 10*3/uL 4.3-11.0 Blood erythrocytes automated count (number/volume) 3.61 10*6/uL 4.35-5.85 Venous blood hemoglobin measurement (mass/volume) 11.3 [...] Automated blood platelet mean volume measurement 11.2 [foz_us] 7.4-10.4 Whole blood basic metabolic panel - 04/02/16 04:09 Serum or plasma sodium measurement (moles/volume) 139 mmol/L 135-145 Serum or plasma potassium measurement (moles/volume) 4.1 mmol/L 3.6-5.0 Serum or plasma chloride measurement (moles/volume) 110 mmol/L 98-107 Carbon dioxide 22 mmol/L 21-32 Serum or plasma anion gap determination (moles/volume) 7 mmol/L 5-14 Serum or plasma urea nitrogen measurement (mass/volume) 17 mg/dL 7-18 Serum or plasma creatinine measurement (mass/volume) 1.16 mg/dL 0.60-1.30 Serum or plasma urea nitrogen/creatinine mass ratio 15 NRG Serum or plasma creatinine measurement with calculation of estimated glomerular filtration rate > NRG Serum or plasma glucose measurement (mass/volume) 89 mg/dL 70-105 Serum or plasma calcium measurement (mass/volume) 7.8 mg/dL 8.5-10.1 [id number] gene mutation analysis - 04/02/16 04:09 [id number] gene mutation analysis NORMAL NRG Complete urinalysis with reflex to culture - 04/08/16 12:40 Urine color determination YELLOW NRG Urine clarity determination CLEAR NRG Urine pH measurement by test strip 7 5-9 Specific gravity of urine by test strip 1.010 1.016- 1.022 Urine protein assay by test strip, semi-quantitative [...] 12:57 Blood leukocytes automated count (number/volume) 7.6 10*3/uL 4.3-11.0 Blood erythrocytes automated count (number/volume) 4.22 10*6/uL 4.35-5.85 Venous blood hemoglobin measurement (mass/volume) 13.5 g/dL 13.3-17.7 Blood hematocrit (volume fraction) 39 % 40-54 Automated erythrocyte mean corpuscular volume 93 [[facility]] 80-99 Automated erythrocyte mean corpuscular hemoglobin (mass per erythrocyte) 32 pg 25-34 Automated erythrocyte mean corpuscular hemoglobin concentration measurement ( mass/volume) 34 g/dL 32-36 Automated erythrocyte distribution width ratio 13.4 % 10.0-14.5 Automated blood platelet count (count/volume) 230 10*3/uL 130-400 Automated blood platelet mean volume measurement 10.9 [foz_us] 7.4-10.4 Automated blood neutrophils/100 leukocytes 67 % [...] Serum or plasma sodium measurement (moles/volume) 139 mmol/L 135-145 Serum or plasma potassium measurement (moles/volume) 4.1 mmol/L 3.6-5.0 Serum or plasma chloride measurement (moles/volume) 108 mmol/L 98-107 Carbon dioxide 23 mmol/L 21-32 Serum or plasma anion gap determination (moles/volume) 8 mmol/L 5-14 Serum or plasma urea nitrogen measurement (mass/volume) 14 mg/dL 7-18 Serum or plasma creatinine measurement (mass/volume) 1.56 mg/dL 0.60-1.30 Serum or plasma urea nitrogen/creatinine mass [...] or plasma troponin i.cardiac measurement (mass/volume) 0.93 ng /mL <0.30 Lipase - 04/08/16 12:57 Lipase 39 [...] or plasma indirect bilirubin measurement (mass/volume) 0.4 mg/ dL NRG Encounters ACCT No. Visit Date/Time Discharge Status Pt. Type Provider Facility Loc./Unit Complaint [id number] 02/22/2018 10:35:00 02/22/2018 23:59:59 CLS Outpatient YOHAN QUINTERO [facility] CARD CAD [id number] 07/14/2017 11:23:00 08/22/2017 10:11:00 DIS Outpatient NISHANT FERNÁNDEZ APRN [facility] REHAB S/P L SHOULDER SCOPE WITH RTC DEBRIDEMENT [id number] 05/23/2017 06:00:00 05/23/2017 11:30:00 DIS Outpatient HELENE AKHTAR DO [facility] SDC TORN ROTATOR CUFF LEFT SHOULDER [id number] 05/11/2017 09:35:00 05/11/2017 13:34:00 DIS Outpatient HELENE AKHTAR DO [facility] PREOP TORN ROTATOR CUFF LEFT SHOULDER [id number] 04/17/2017 08:09:00 04/17/2017 23:59:59 CLS Outpatient MOO KASPER MD [facility] CARD CAD I25.10 [id number] 03/15/2017 02:02:00 03/15/2017 03:34:00 DIS Emergency NIXON KASPER MD [facility] ER NOSE BLEED [id number] 02/14/2017 07:00:00 02/14/2017 23:59:59 CLS Outpatient RENE TIWARI DO [facility] RAD PAIN IN RUQ [id number] 10/15/2016 08:44:00 10/15/2016 23:59:59 CLS Outpatient YOHAN QUINTERO [facility] LAB ELEVATED LIVER ENZYMES [id number] 05/31/2016 07:53:00 05/31/2016 23:59:59 CLS Outpatient MOO KASPER MD [facility] LAB CAD,GERD,HTN [id number] 05/01/2016 11:11:00 05/01/2016 12:19:00 DIS Emergency NIXON KASPER MD [facility] ER NOSE BLEED [id number] 04/19/2016 09:00:00 04/19/2016 23:59:59 CLS Preadmit ALISTAIR MULLEN MD [facility] SDC LEFT STONE [id number] 04/18/2016 08:26:00 04/18/2016 23:59:59 CLS Outpatient ALISTAIR MULLEN MD [facility] RAD URETERAL AND RENAL STONE [id number] 04/18/2016 06:20:00 04/18/2016 23:59:59 CLS Outpatient ALISTAIR MULLEN MD [facility] PREOP LEFT STONE [id number] 04/11/2016 10:06:00 04/11/2016 23:59:59 CLS Outpatient CHRIS BRAXTON MD [facility] RAD NEPHROLITHIASIS [id number] 04/08/2016 12:31:00 04/08/2016 14:31:00 DIS Emergency CHRIS BRAXTON MD [facility] ER LEFT SIDE ABD PAIN [id number] 03/31/2016 21:15:00 04/02/2016 12:18:00 DIS Inpatient MOO KASPER MD [facility] ICU STEMI [id number] 10/08/2013 15:37:00 10/08/2013 23:59:59 CLS Outpatient RENE TIWARI DO [facility] RAD RT KNEE PAIN X3 MONTHS [id number] 06/08/2016 13:04:42 06/08/2016 23:59:59 CLS Outpatient
== END 2018-05-08 19:28 | disposition home or self-care (01) ==
LOC: EDUNIT# 17:02 → ER 17:03
DX: R10.32 Left lower quadrant pain (principal); R10.31 Right lower quadrant pain; I25.10 Atherosclerotic heart disease of native coronary artery without angina pectoris; E78.00 Pure hypercholesterolemia, unspecified; I10 Essential (primary) hypertension; Z87.442 Personal history of urinary calculi; Z87.891 Personal history of nicotine dependence; Z88.8 Allergy status to other drugs, medicaments and biological substances; Z79.82 Long term (current) use of aspirin; Z95.5 Presence of coronary angioplasty implant and graft
CPT/HCPCS: 36415; 74177; 80053; 81000; 82150; 83690; 85025

== ENCOUNTER → 2019-05-16 | Outpatient (CLI) | payer MEDICARE, OTHER ==
[~2019-05-16] MED LIST changes: -ROSU20TA PO; +ROSU20TA2 PO
== END ==
LOC: CARD 09:20
PROVIDERS: ATTEND Physician Assistant
DX: I25.10 Atherosclerotic heart disease of native coronary artery without angina pectoris (principal); K21.9 Gastro-esophageal reflux disease without esophagitis; I10 Essential (primary) hypertension; E78.5 Hyperlipidemia, unspecified
CPT/HCPCS: 93306

== ENCOUNTER → 2019-05-20 | Outpatient (CLI) | payer MEDICARE, OTHER ==
[~2019-05-20] VITALS: Ht 182 cm; Wt 92.0 kg
[~2019-05-20] MED LIST changes: +CATHETER FLUSH 10 ML SYR IV PRN
[2019-05-20 09:22] VITALS: BP 138/80
[2019-05-20 09:34] VITALS: BP 215/97
--- NOTE | 2019-05-21 08:45 | STRESS TEST ---
DATE OF SERVICE: 05/20/2019 EXERCISE MYOVIEW STRESS TEST REPORT REFERRING PHYSICIAN: Dr. Singh. Baseline heart rate is 44, baseline blood pressure 138/80. Baseline EKG is sinus rhythm with no ischemic changes. In summary, the patient was injected with 10.54 mCi of technetium-99 Myoview and the resting images were obtained. Then, he started exercising with a baseline heart rate, blood pressure and EKG mentioned above. He was able to exercise for 9 minutes 25 seconds on standard Salo protocol. With peak exercise level, EKG was showing minimal nondiagnostic changes. He was injected with 30.0 mCi of technetium-99 Myoview. Peak blood pressure was 215/97. During recovery, heart rate and blood pressure returned to baseline. EKG returned to baseline. The resting and stress images were reviewed and compared in the short axis, horizontal long axis, and vertical long axis views. Review of the images showed diaphragmatic attenuation with mild decreased uptake at the basal to mid inferolateral wall and inferior wall with no significant ischemia. SSS is 6, SDS 2, TID value 0.91. On the gated images, the left ventricle appeared to be normal size with normal contractility. Calculated ejection fraction 59%. CONCLUSION: 1. Good exercise tolerance, a total of 9 minutes 25 seconds on standard Salo protocol, total of 10.3 METS achieving 93% of maximum expected heart rate. 2. Severe hypertensive response to exercise with peak blood pressure 215/97 returned to baseline during recovery. 3. Diaphragmatic attenuation with typical male pattern with no significant ischemia or infarction on SPECT images. 4. Normal left ventricular size with normal contractility. Calculated ejection fraction 59%. Job ID: [id number] DocumentID: [id number] Dictated Date: 05/21/2019 07:39:24 Compensation Expert Date: 05/21/2019 08:45:16 Dictated By: MOO KASPER MD
== END ==
LOC: CARD 07:38
PROVIDERS: ATTEND Physician Assistant
DX: I25.10 Atherosclerotic heart disease of native coronary artery without angina pectoris (principal); K21.9 Gastro-esophageal reflux disease without esophagitis; I10 Essential (primary) hypertension; E78.5 Hyperlipidemia, unspecified
CPT/HCPCS: 78452; 93017

== ENCOUNTER 2019-08-13 05:47 | Outpatient (CLI) | payer MEDICARE, OTHER ==
[~2019-08-13] VITALS: Ht 182.9 cm; Wt 91.8 kg
[~2019-08-13 05:47] MED LIST changes: -CATHETER FLUSH 10 ML SYR IV PRN; -METO-387 PO; +MTP25TSR PO
[2019-08-13] MEDS ORDERED: PANT40TA3 PO (13:31)
[2019-08-13] MEDS ORDERED: ASPI-586 PO (13:31)
[2019-08-13] MEDS ORDERED: ROSU10TA28 PO (13:31)
[2019-08-13] MEDS ORDERED: METO50TA7 PO (13:31)
== END 2019-08-13 13:40 | disposition home or self-care (01) ==
LOC: PREOP 05:47
PROVIDERS: ATTEND Surgery
DX: Z01.818 Encounter for other preprocedural examination (principal)

== ENCOUNTER 2019-08-15 09:08 | Day surgery (SDC) | payer MEDICARE, OTHER ==
[2019-08-15] VITALS (13 sets, daily range): BP systolic 92–144; BP diastolic 63–94
[~2019-08-15] VITALS: Ht 182 cm; Wt 91.8 kg
[~2019-08-15 09:08] MED LIST changes: +ASPI-586 PO; +METO-370 PO; +METO-387 PO; -MTP25TSR PO; +ROSU10TA28 PO
[2019-08-15] MEDS ORDERED: INDOCYANINE GREEN 25 MG (ICG) VIAL IV ONE ×2 (09:30→09:45)
[2019-08-15] MEDS ORDERED: CLINDAMYCIN 600 MG/50 ML IVPB 50 ML IV ONE ×2 (09:30→09:45)
[2019-08-15 09:36] LABS: BASOPHILS # (AUTO) 0.1 10^3/uL (0.0-0.1); BASOPHILS % (AUTO) 1 % (0-10); EOSINOPHILS # (AUTO) 0.2 10^3/uL (0.0-0.3); EOSINOPHILS % (AUTO) 3 % (0-10); HEMATOCRIT 46 % (40-54); HEMOGLOBIN 15.5 G/DL (13.3-17.7); LYMPHOCYTES # (AUTO) 1.7 X 10^3 (1.0-4.0); LYMPHOCYTES % (AUTO) 25 % (12-44); MEAN CORPUSCULAR HEMOGLOBIN 32 PG (25-34); MEAN CORPUSCULAR HGB CONC 34 G/DL (32-36); MEAN CORPUSCULAR VOLUME 94 FL (80-99); MEAN PLATELET VOLUME 11.3 FL (7.4-10.4); MONOCYTES # (AUTO) 0.7 X 10^3 (0.0-1.0); MONOCYTES % (AUTO) 11 % (0-12); NEUTROPHILS # (AUTO) 4.1 X 10^3 (1.8-7.8); NEUTROPHILS % (AUTO) 61 % (42-75); PLATELET COUNT 180 10^3/uL (130-400); RED CELL DISTRIBUTION WIDTH 13.7 % (10.0-14.5); WHITE BLOOD COUNT 6.8 10^3/uL (4.3-11.0)
[2019-08-15] MEDS: LACTATED RINGERS 1,000 ML IV PRN ×3 (09:53→13:40)
--- NOTE | 2019-08-15 09:53 | Progress Note-Pre Operative ---
Pre-Operative Progress Note H&P Reviewed The H&P was reviewed, patient examined and no changes noted. Time Seen by Provider: 09:51 Date H&P Reviewed: Aug 15, 2019 Time H&P Reviewed: 09:50 Pre-Operative Diagnosis: Incarcerated Left Inguinal hernia CINDY ASHBY DO Aug 15, 2019 09:53 POS
[2019-08-15] MEDS ORDERED: fentaNYL INJECTION 100 MCG/2 ML AMP ONE (09:54)
[2019-08-15] MEDS ORDERED: MIDAZOLAM 2 MG/2 ML (VERSED) VIAL ONE (09:54)
[2019-08-15] MEDS ORDERED: LIDOCAINE PF 2% 5 ML (XYLOCAINE) VIAL ONE (09:54)
[2019-08-15] MEDS ORDERED: ROCURONIUM 10 MG/ML 5 ML SYRINGE IV ONE (09:54)
[2019-08-15] MEDS ORDERED: ONDANSETRON 4 MG/2 ML (SDV) Z0FRAN ONE ×2 (09:54→13:44)
[2019-08-15] MEDS ORDERED: SEVOFLURANE (ULTANE) 15 ML INHAL SOLN ONE ×10 (09:54→13:14)
[2019-08-15] MEDS ORDERED: DEXAMETHASONE 10 MG/ML (DECADRON) 1 ML VIAL ONE (09:54)
[2019-08-15] MEDS ORDERED: BUP/EPI 0.5% 1:200,000 (SENSORCAINE) 30 ML VIAL ONE (09:54)
[2019-08-15] MEDS ORDERED: proPOfol 200 MG/20 ML (DIPRIVAN) VIAL IV ONE (09:54)
[2019-08-15] MEDS ORDERED: ATROPINE INJ 0.4 MG/ML SDV ONE (11:09)
[2019-08-15] MEDS ORDERED: EPINEPHrine INJECTION 1 MG/ML AMP ONE (11:09)
[2019-08-15] MEDS ORDERED: NEOSTIGMINE 3 MG/3 ML VIAL ONE (13:05)
[2019-08-15] MEDS ORDERED: GLYCOPYRROLATE 0.2 MG/ML (ROBINUL) 2 ML VIAL ONE (13:05)
--- NOTE | 2019-08-15 13:23 | Progress Note-Post Operative ---
Post-Operative Progess Note Surgeon (s)/Asbestos Wire Finisher (s) Surgeon CINDY ASHBY DO Asbestos Wire Finisher: LATHA Woodard Pre-Operative Diagnosis Incarcerated Left Inguinal hernia Post-Operative Diagnosis Incarcerated Indirect and Direct inguinal Hernia Incarcerated Spigelian Hernia Procedure & Operative Findings Date of Procedure 08/15/19 Procedure Performed/Findings Laparoscopic IH repair with mesh, with DaVinci Robot Laparoscopic repair of abdominal wall hernia (Spigelian) with Robot Anesthesia Type GET Estimated Blood Loss Estimated blood loss (mL): scant Specimens/Packing Specimens Removed none CINDY ASHBY DO Aug 15, 2019 13:23 POS
[2019-08-15] MEDS ORDERED: ACHD5005 PO (13:24)
--- NOTE | 2019-08-15 13:25 | Discharge Inst-Surgical ---
Discharge Inst-Surgical Depart Medication/Instructions New, Converted or Re-Newed RX: RX Given to Pt/Family Patient Instructions Follow up Appt: Make appointment for 2 weeks. [phone] Instructions: No lifting greater than 20 pounds. No strenuous activity. May shower in 24 hours, no tub bath or soaking. Use incentive spirometer at home as directed. No Smoking Skin/Wound Care: May remove bandages in am. You need to leave the Dermabond on incision it will fall off on it's own. Symptoms to Report: Appetite Changes, Extremity Discoloration, Numbness/Tingling, Swelling Increased, Bleeding Excessive, Eyesight Changes, Pain Increased, Urine Color Change, Constipation(Persistent), Fever over 101 degree F, Pain/Pressure in chest, Urinating Difficulty, Cough Up/Vomit Blood, Heart Beat Irreg/Pounding, Pain/Pressure in jaw, Cramps in feet or legs, Lightheadedness, Pain/Pressure in shoulder, Diarrhea(Persistent), Memory Changes Suddenly, Questions/Concerns, Weight gain consecutive days, Dizziness/Fainting, Nausea/Vomiting, Shortness of Breath, Weight gain over 2 pounds If questions or concerns contact your physician Or seek help at emergency department. Activity Activity as Tolerated: Yes Activity Instructions: Avoid Stress to Incision Driving Instructions: No Driving/Refer to Dr. Shell Discharge Diet: No Restrictions Diet After 24 Hours: Clear Liquid if Nauseous If Any Problems/Questions/Issu: Contact Your Physician, Go to Emergency Room Skin/Wound Care Infection Signs and Symptoms: Increased Redness, Foul Odor of Wound, Increased Drainage, Skin Itchy or Has a Rash, Increased Swelling, Temperature Above 101 F Wound Care Comment: Heating pad to shoulder or neck tonight for pain Bathing Instructions: Shower Stitches/Ru/Dermabond Dis: Dermabond Ice Pack: Ice On and Off Site CINDY ASHBY DO Aug 15, 2019 13:25 POS
[2019-08-15] MEDS ORDERED: HYDROmorphone 2 MG/ML VIAL (DILAUDID) ONE (13:42)
[2019-08-15] MEDS ORDERED: morphine INJ 10 MG/ML 1ML (SYR OR VIAL) IVP ONE (13:45)
[2019-08-15] MEDS ORDERED: HYDROmorphone 2 MG/ML VIAL (DILAUDID) IV ONE (13:45)
[2019-08-15] MEDS: ONDANSETRON 4 MG/2 ML (SDV) Z0FRAN IVP PRN ×2 (13:46→14:15)
--- NOTE | 2019-08-15 15:10 | NUR ---
O2 DECREASED TO 3 LITERS PER NASAL CANNULA. PATIENT MORE ALERT.
[2019-08-15] MEDS ORDERED: ACETAMINOPHEN 500 MG TAB (TYLENOL) PO ONE (16:30)
--- NOTE | 2019-08-16 04:10 | OPERATIVE REPORT ---
DATE OF SERVICE: 08/15/2019 PREOPERATIVE DIAGNOSIS: Incarcerated left inguinal hernia. POSTOPERATIVE DIAGNOSES: 1. Incarcerated indirect with an incarcerated direct inguinal hernia. 2. Incarcerated Spigelian hernia. PROCEDURES: 1. Laparoscopic inguinal herniorrhaphy with mesh placement with robotic assistance. 2. Laparoscopic repair of abdominal wall hernia with robotic assistance. SURGEON: Kiran Mayer DO EXTRUSION OPERATOR: Kayode Hernandez MS-3 ANESTHESIA: General endotracheal tube. SPECIMENS: None. BLOOD LOSS: Scant. FLUIDS: Per anesthesia. POSTOPERATIVE CONDITION: Stable. INDICATION FOR PROCEDURE: The patient is a 63-year-old male who was diagnosed with an incarcerated left inguinal hernia and he elected to get this repaired laparoscopically, did this with the robot. FINDINGS: The patient had a very large indirect inguinal hernia with intestine stuck in there as well as omentum. Also he then had another hernia, direct inguinal hernia and while doing the preperitoneal takedown, I found incarcerated Spigelian hernia. PROCEDURE NOTE: After informed consent was obtained, the patient was brought to the operating room, placed on the table in supine position, he was sterilely prepped and draped in normal fashion. Local lidocaine was used to infiltrate the skin above the umbilicus. I made the incision with #11 blade, carried down through the skin into subcutaneous tissue, then deepened down to subcutaneous tissue with Bovie electrocautery down to the fascia. Fascia incised with electrocautery, bluntly entered the abdomen, swept the finger around, placed 0 Vicryl [id number] suture and placed limited trocar port under direct visualization. Created pneumoperitoneum, then placed 2 more ports, 10 cm, one on either side of the supraumbilical incision using local lidocaine, #11 blade for stab incision and 8 mm incision was used and then advanced to the 8 mm robotic trocar ports under direct visualization. Once this was done, the patient was then placed in Trendelenburg and robot was then docked, could see a large indirect inguinal hernia with intestine and omentum stuck in there. Carefully took some of this down and then started taking down the preperitoneal tissue coming across laterally to medially coming to the mid umbilical ligament and then going straight down there. Created an L type incision and then carefully peeling the preperitoneal tissue off the fascia. While going down, encountered an incarcerated Spigelian hernia, took the fat out of here and once this was out, took a picture and then continued taking the preperitoneal fascia down. We took the fascia down medially to the pubic tubercle and then laterally out for enough, so that we could be able to put a large Bard 3D mesh in and then down to the peritoneal reflection inferiorly. Encountered a large indirect hernia sac, carefully started pulling this in and took long time to get this and then encountered a direct inguinal hernia sac, carefully removed this. Once we had freed up all this and gotten the fat out, skeletonized the cord and cord structures, so that they were out of the way, then had good visualization, elected to place a Bard 3D mesh the large was placed in there. Sutured once at the pubic tubercle and then once superiorly in the fascia and then laterally to cover the Spigelian hernia. This mesh laid in nicely and then once this was sewn in, then we elected to close the preperitoneal tissue with a head sutured the mesh in with 2-0 Vicryl suture, then sutured the peritoneum closed with a 2-0 V-Loc running suture, got a good closure, took a picture of this and then undocked the robot, placed the patient supine and then removed all ports under direct visualization, allowed pneumoperitoneum to escape. Closed the supraumbilical incision, closing the fascia with 0 Vicryl suture previously placed. Copiously irrigated all incisions with normal saline and closed the supraumbilical incision with 3 interrupted 4-0 undyed Monocryl subcuticular stitches and closed the 8 mm incision with a 4-0 undyed Monocryl 2 interrupted subcuticular stitches. Area was cleaned and dried. Dermabond placed as well as Band-Aids. The patient tolerated the procedure. Sponge, instrument and needle counts correct at the end of the case. He was transferred to recovery room in stable condition. Sponge, instrument and needle count correct at the end of the case. Job ID: [id number] DocumentID: [id number] Dictated Date: 08/15/2019 17:54:55 Painting Manager Date: 08/16/2019 03:26:16 Dictated By: DO DAMON GUZMÁN
== END 2019-08-15 16:50 | disposition home or self-care (01) ==
LOC: SDC 09:08
PROVIDERS: ATTEND Surgery
DX: K40.30 Unilateral inguinal hernia, with obstruction, without gangrene, not specified as recurrent (principal); K43.6 Other and unspecified ventral hernia with obstruction, without gangrene; I10 Essential (primary) hypertension; I25.2 Old myocardial infarction; I20.8 Other forms of angina pectoris; K21.9 Gastro-esophageal reflux disease without esophagitis; E78.5 Hyperlipidemia, unspecified; Z95.1 Presence of aortocoronary bypass graft; Z87.891 Personal history of nicotine dependence; Z79.899 Other long term (current) drug therapy; Z88.0 Allergy status to penicillin; Z88.8 Allergy status to other drugs, medicaments and biological substances
CPT/HCPCS: 36415; 85025; 87081; 94664

== ENCOUNTER → 2021-02-16 | Outpatient (CLI) | payer MEDICARE, OTHER ==
[~2021-02-16] MED LIST changes: +ACHD5005 PO; +ACHYD1T PO; +ASPI-1238 PO; -ASPI-983 PO; -HYDR-3820 PO; -ISOS30TA3 PO; +ISOS30TA82 PO; -METO-370 PO; -METO-387 PO; +METO50TA7 PO; +MTP25TSR PO; -PANT40TA3 PO; +PANT40TA52 PO
[2021-02-16 13:32] LABS: HEMATOCRIT 51 % (40-54); HEMOGLOBIN 17.2 g/dL (13.3-17.7); MEAN CORPUSCULAR HEMOGLOBIN 31 pg (25-34); MEAN CORPUSCULAR HGB CONC 34 g/dL (32-36); MEAN CORPUSCULAR VOLUME 92 fL (80-99); MEAN PLATELET VOLUME 11.1 fL (9.0-12.2); PLATELET COUNT 205 10^3/uL (130-400); WHITE BLOOD COUNT 7.2 10^3/uL (4.3-11.0)
[2021-02-16 13:53] LABS: ALANINE AMINOTRANSFERASE 35 U/L (0-55); ALBUMIN 4.3 GM/DL (3.2-4.5); ALKALINE PHOSPHATASE 79 U/L (40-136); BILIRUBIN,TOTAL 0.5 MG/DL (0.1-1.0); BUN/CREATININE RATIO 10; CALCIUM 9.6 MG/DL (8.5-10.1); CARBON DIOXIDE 25 MMOL/L (21-32); CHLORIDE 104 MMOL/L (98-107); CREATININE SERUM 1.72 MG/DL (0.60-1.30); GFR ESTIMATED 40; GLUCOSE 100 MG/DL (70-105); POTASSIUM 3.9 MMOL/L (3.6-5.0); SODIUM 138 MMOL/L (135-145)
== END ==
LOC: LAB 13:01
PROVIDERS: ATTEND Family Medicine
DX: I10 Essential (primary) hypertension (principal); R07.89 Other chest pain
CPT/HCPCS: 36415; 80053; 84484; 85027

== ENCOUNTER → 2021-02-23 | Outpatient (CLI) | payer MEDICARE, OTHER ==
[2021-02-23 08:15] LABS: POTASSIUM 3.7 MMOL/L (3.6-5.0)
[2021-02-23 08:16] LABS: CALCIUM 9.1 MG/DL (8.5-10.1)
[2021-02-23 08:20] LABS: CREATININE SERUM 1.72 MG/DL (0.60-1.30)
== END ==
LOC: LAB 07:41
PROVIDERS: ATTEND Family Medicine
DX: N28.9 Disorder of kidney and ureter, unspecified (principal); I10 Essential (primary) hypertension
CPT/HCPCS: 36415; 80048

== ENCOUNTER → 2021-02-24 | Outpatient (CLI) | payer MEDICARE, OTHER | LOC: CARD 09:00 | PROVIDERS: ATTEND Physician Assistant | DX: I11.9 Hypertensive heart disease without heart failure (principal) | CPT/HCPCS: 93306 ==

== ENCOUNTER 2021-04-26 10:33 | Observation (INO) | payer MEDICARE, OTHER ==
[~2021-04-26] VITALS: Ht 182.8 cm; Wt 90.7 kg
--- NOTE | 2021-04-26 10:56 | ED General ---
General Stated Complaint: SYNCOPE Source of Information: Patient Exam Limitations: No Limitations History of Present Illness Date Seen by Provider: Apr 26, 2021 Time Seen by Provider: 10:53 Initial Comments To ER by JANELLE Barclay. Patient was traveling on [address] when he became intensely nauseated and thought he was going to vomit. He pulled the car over, got out and then got lightheaded and passed out briefly in the ditch. who was riding with him called EMS and upon their arrival he was bradycardic with a heart rate of "30s to 50s". He was given 0.5 mg of atropine. His blood pressure was 70s systolic. History of coronary artery disease most recent cardiac catheterization/st[place] [address] Morales. Primary care is Dr. Tiwari. At this time he feels severe general weakness but no chest pain no shortness of breath no headache no pain anywhere. He has had a cough and nasal congestion for the past 2 days. However, has had Covid vaccinations. Timing/Duration: 1-2 Days Severity: Moderate Associated Systoms: Weakness Allergies and Home Medications Allergies Coded Allergies: Penicillins (Verified Allergy, Unknown, 05/11/17) meperidine (Verified Allergy, Unknown, 05/11/17) Home Medications Amlodipine Besylate 10 Mg Tablet, 10 MG PO HS, (Reported) Aspirin 81 Mg Tablet.dr, 81 MG PO HS, (Reported) Hydrocodone Bit/Acetaminophen 1 Tab Tab, 1 TAB PO Q6H PRN for PAIN-MODERATE Prescribed by: CINDY ASHBY on 08/15/19 1324 Metoprolol Succinate 50 Mg Tab.er.24h, 50 MG PO HS, (Reported) Pantoprazole Sodium 40 Mg Tablet.dr, 40 MG PO DAILY, (Reported) Rosuvastatin Calcium 10 Mg Tablet, 10 MG PO HS, (Reported) Patient Home Medication List Home Medication List Reviewed: Yes Review of Systems Review of Systems Constitutional: see HPI EENTM: see HPI Respiratory: no symptoms reported Cardiovascular: see HPI, syncope Genitourinary: no symptoms reported Musculoskeletal: no symptoms reported Skin: no symptoms reported Psychiatric/Neurological: No Symptoms Reported Hematologic/Lymphatic: No Symptoms Reported Immunological/Allergic: no symptoms reported (Area) Past Uzmfvbd-Bamjva-Ozlsls Hx Immunizations Up To Date Tetanus Booster (TDap): More than 5yrs PED Vaccines UTD: No Seasonal Allergies Seasonal Allergies: No Past Medical History Surgeries: Yes (R RTC REPAIR, R INGUINAL HERNIA, R KNEE SCOPE, ) Cardiac, Coronary Stent Respiratory: No Currently Using CPAP: No Currently Using BIPAP: No Cardiac: Yes (2 STENTS PLACED IN 2016) Coronary Artery Disease, High Cholesterol, Hypertension Neurological: No Reproductive Disorders: No Sexually Transmitted Disease: No HIV/AIDS: No Genitourinary: Yes Kidney Stones Gastrointestinal: No Musculoskeletal: No Endocrine: No HEENT: No Loss of Vision: Bilateral Hearing Impairment: Denies Cancer: No Psychosocial: No Integumentary: No Blood Disorders: No Adverse Reaction/Blood Tranf: No (N/A) Family Medical History CAD Under 55 Years Old Physical Exam Vital Signs Vital Signs - First Documented Capillary Refill : Height, Weight, BMI Height: 6'0" Weight: 200lbs. 1.0oz. [id number]; 27.71 BMI Method:Stated General Appearance: No Apparent Distress, WD/WN, Other (Alert, lethargic appearing. Sinus rhythm rate of 62 no ectopy. Blood pressure 105/74 respiratory rate 17 SPO2 93% room air.) HEENT: PERRL/EOMI, TMs Normal Neck: Full Range of Motion, Normal Inspection Respiratory: No Accessory Muscle Use, No Respiratory Distress Cardiovascular: Regular Rate, Rhythm, Normal Peripheral Pulses Gastrointestinal: Non Tender, Soft Extremity: Normal Capillary Refill, Normal Inspection Neurologic/Psychiatric: Alert, Oriented x3 Skin: Normal Color, Warm/Dry Progress/Results/Core Measures Suspected Sepsis SIRS Temperature: Pulse: Respiratory Rate: Laboratory Tests 04/26/21 10:54: White Blood Count 5.5 Blood Pressure / Mean: Laboratory Tests 04/26/21 10:54: Creatinine 1.62H, Platelet Count 141, Total Bilirubin 0.3 Results/Orders Lab Results Laboratory Tests Test 04/26/21 10:54 04/26/21 11:00 Range/Units White Blood Count 5.5 4.3-11.0 10^3/uL Red Blood Count 4.05 L 4.30-5.52 10^6/uL Hemoglobin 12.8 L 13.3-17.7 g/dL Hematocrit 39 L 40-54 % Mean Corpuscular Volume 95 80-99 fL Mean Corpuscular Hemoglobin 32 25-34 pg Mean Corpuscular Hemoglobin Concent 33 32-36 g/dL Red Cell Distribution Width 13.0 10.0-14.5 % Platelet Count 141 130-400 10^3/uL Mean Platelet Volume 11.2 9.0-12.2 fL Immature Granulocyte % (Auto) 0 % Neutrophils (%) (Auto) 61 42-75 % Lymphocytes (%) (Auto) 17 12-44 % Monocytes (%) (Auto) 20 H 0-12 % Eosinophils (%) (Auto) 1 0-10 % Basophils (%) (Auto) 1 0-10 % Neutrophils # (Auto) 3.4 1.8-7.8 10^3/uL Lymphocytes # (Auto) 1.0 1.0-4.0 10^3/uL Monocytes # (Auto) 1.1 H 0.0-1.0 10^3/uL Eosinophils # (Auto) 0.1 0.0-0.3 10^3/uL Basophils # (Auto) 0.0 0.0-0.1 10^3/uL Immature Granulocyte # (Auto) 0.0 0.0-0.1 10^3/uL Neutrophils % (Manual) 60 % Lymphocytes % (Manual) 18 % Monocytes % (Manual) 15 % Band Neutrophils 7 % Percent Immature Platelet Fraction 4.1 0.0-7.6 % Blood Morphology Comment NORMAL Sodium Level 136 135-145 MMOL/L Potassium Level 3.3 L 3.6-5.0 MMOL/L Chloride Level 110 H 98-107 MMOL/L Carbon Dioxide Level 20 L 21-32 MMOL/L Anion Gap 6 5-14 MMOL/L Blood Urea Nitrogen 14 7-18 MG/DL Creatinine 1.62 H 0.60-1.30 MG/DL Estimat Glomerular Filtration Rate 43 BUN/Creatinine Ratio 9 Glucose Level 101 70-105 MG/DL Calcium Level 7.1 L 8.5-10.1 MG/DL Corrected Calcium 7.8 L 8.5-10.1 MG/DL Magnesium Level 1.5 L 1.6-2.4 MG/DL Total Bilirubin 0.3 0.1-1.0 MG/DL Aspartate Amino Transf (AST/SGOT) 25 5-34 U/L Alanine Aminotransferase (ALT/SGPT) 31 0-55 U/L Alkaline Phosphatase 55 40-136 U/L Troponin I < 0.028 <0.028 NG/ML B-Type Natriuretic Peptide 26.7 <100.0 PG/ML Total Protein 5.7 L 6.4-8.2 GM/DL Albumin 3.1 L 3.2-4.5 GM/DL Thyroid Stimulating Hormone (TSH) 0.46 0.35-4.94 UIU/ML SARS-CoV-2 RNA (RT-PCR) Detected H Not Detecte My Orders Orders - ANDRIY TOM APRN Ekg Tracing (04/26/21 10:45) Cbc With Automated Diff (04/26/21 10:45) Comprehensive Metabolic Panel (04/26/21 10:45) BNP (04/26/21 10:45) Ed Iv/Invasive Line Start (04/26/21 10:45) Troponin I (04/26/21 10:52) Magnesium (04/26/21 10:52) Thyroid Stimulating Hormone (04/26/21 10:52) Chest 1 View, Ap/Pa Only (04/26/21 10:56) Covid 19 Inhouse Test (04/26/21 10:56) Manual Differential (04/26/21 10:54) Hs C Reactive Protein (04/26/21 11:51) Vital Signs/I&O 04/26/21 04/26/21 10:46 10:46 Temp 36.5 Pulse 62 Resp 23 B/P (MAP) 105/74 (84) Pulse Ox 97 O2 Delivery Room Air Room Air Capillary Refill : Departure Communication (Admissions) 1206-O2 sats 92-97% on room air here. Will admit him for observation given the syncope and alleged bradycardia. He has not had any bradycardic episodes here nor has he had any ectopy. Blood pressure is fine at 120s over 80s. We will see if we can get him to qualify for [facility] since he is admitted for bradycardia. Dr. Cifuentes will consult Dr. Collier will admit. Impression Primary Impression: History of bradycardia Additional Impressions: Syncope and collapse COVID-19 Disposition: ADMITTED INPATIENT Condition: Stable Admissions Decision to Admit Reason: Admit from ER (General) Decision to Admit/Date: Apr 26, 2021 Time/Decision to Admit Time: 11:43 Departure-Patient Inst. Referrals: RENE TIWARI DO (PCP/Family) Primary Care Physician ANDRIY TOM APRN Apr 26, 2021 10:56
[2021-04-26 11:06] LABS: BASOPHILS % (AUTO) 1 % (0-10); EOSINOPHILS # (AUTO) 0.1 10^3/uL (0.0-0.3); EOSINOPHILS % (AUTO) 1 % (0-10); HEMATOCRIT 39 % (40-54); HEMOGLOBIN 12.8 g/dL (13.3-17.7); LYMPHOCYTES % (AUTO) 17 % (12-44); MEAN CORPUSCULAR HEMOGLOBIN 32 pg (25-34); MEAN CORPUSCULAR HGB CONC 33 g/dL (32-36); MEAN CORPUSCULAR VOLUME 95 fL (80-99); MEAN PLATELET VOLUME 11.2 fL (9.0-12.2); MONOCYTES # (AUTO) 1.1 10^3/uL (0.0-1.0); MONOCYTES % (AUTO) 20 % (0-12); NEUTROPHILS # (AUTO) 3.4 10^3/uL (1.8-7.8); NEUTROPHILS % (AUTO) 61 % (42-75); PLATELET COUNT 141 10^3/uL (130-400); WHITE BLOOD COUNT 5.5 10^3/uL (4.3-11.0)
[2021-04-26 11:13] LABS: ALBUMIN 3.1 GM/DL (3.2-4.5); CHLORIDE 110 MMOL/L (98-107); POTASSIUM 3.3 MMOL/L (3.6-5.0); SODIUM 136 MMOL/L (135-145)
[2021-04-26 11:14] LABS: CALCIUM 7.1 MG/DL (8.5-10.1)
[2021-04-26 11:15] LABS: GLUCOSE 101 MG/DL (70-105); TOTAL PROTEIN 5.7 GM/DL (6.4-8.2)
[2021-04-26 11:16] LABS: CARBON DIOXIDE 20 MMOL/L (21-32)
[2021-04-26 11:17] LABS: BILIRUBIN,TOTAL 0.3 MG/DL (0.1-1.0)
[2021-04-26 11:19] LABS: ALKALINE PHOSPHATASE 55 U/L (40-136); CREATININE SERUM 1.62 MG/DL (0.60-1.30); GFR ESTIMATED 43
[2021-04-26 11:20] LABS: BUN/CREATININE RATIO 9
[2021-04-26 11:22] LABS: ALANINE AMINOTRANSFERASE 31 U/L (0-55); MAGNESIUM 1.5 MG/DL (1.6-2.4)
[2021-04-26 11:33] LABS: BAND NEUTROPHILS 7 %; LYMPHOCYTES % (MANUAL) 18 %; MONOCYTES % (MANUAL) 15 %; NEUTROPHILS % (MANUAL) 60 %; RBC MORPH NORMAL
--- NOTE | 2021-04-26 12:28 | Diagnostic Imaging Report ---
EXAMINATION: Chest 1 view HISTORY: chest pain COMPARISON: 04/08/2016. FINDINGS: Heart size and pulmonary vasculature are normal. The lungs are clear without consolidation, pleural effusion, or pneumothorax. The osseous structures are intact. IMPRESSION: 1. No acute radiographic abnormality in the chest. Dictated by: Dictated on workstation # [id number]
[2021-04-26] MEDS ORDERED: KCL 20 MEQ TAB (K-DUR) PO NR (14:45)
[2021-04-26] MEDS ORDERED: CATHETER FLUSH 10 ML SYR IV PRN (15:00)
[2021-04-26] MEDS ORDERED: EPINEPHrine INJECTION 1 MG/ML AMP IM PRN (15:00)
[2021-04-26] MEDS ORDERED: diphenhydrAMINE 50 MG/ML INJ (BENADRYL) IV PRN (15:00)
[2021-04-26] MEDS ORDERED: dexAMETHasone 6 MG TAB (DECADRON) PO SCH (15:00)
[2021-04-26] MEDS ORDERED: ONDANSETRON 4 MG/2 ML (SDV) Z0FRAN IV PRN (15:00)
[2021-04-26] MEDS ORDERED: ATROPINE INJECTION 1 MG/10 ML SYR (ABBOTT) IV PRN (15:00)
[2021-04-26] MEDS ORDERED: ACETAMINOPHEN 500 MG TAB (TYLENOL) PO PRN (15:00)
[2021-04-26] MEDS: MAGNESIUM 1 GM/100 ML IVPB 100 ML IV SCH ×3 (15:07→17:00)
[2021-04-26] MEDS: LACTATED RINGERS 1,000 ML IV SCH (15:07)
[2021-04-26] MEDS: ENOXAPARIN 40 MG/0.4 ML (LOVENOX) SYR SC SCH (15:07)
[2021-04-26] MEDS ORDERED: AMLO-251 PO (15:52)
[2021-04-26] MEDS ORDERED: PROM473S9 PO (15:52)
[2021-04-26] MEDS ORDERED: ASPI-1238 PO (15:52)
[2021-04-26 16:00] VITALS: BP 134/86
[2021-04-26] MEDS ORDERED: CASIRIVIMAB/IMDEVIMAB 1,200 MG in NS (IVPB) 250 ML IV NR (16:00)
--- NOTE | 2021-04-26 17:12 | Consultation-Cardiology ---
HPI-Cardiology Cardiology Consultation: Date of Consultation 04/26/21 Time Seen by a Provider: 17:50 Date of Admission Attending Physician Peyton Collier MD Admitting Physician Sarabjit Singh DO Consulting Physician WON TURNER MD, MA, FACP, FACC, [facility] [place], CCDS Primary coder operator: Dr Morales Physician requesting consult: Dr Collier HPI: Chief Complaint: Reason for Cardiology consultation: Syncope HPI 65 yo man who has been having gen malaise and increasing cough for the last 2-3 days. 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 He pulled over and went to the back of the vehicle and passed out for about a minute or so. , with the help of passersby, called EMS. At initial response, as reported to me by the ER physician who had spoken with the EMT, the pt was conscious but lethargic and the heart rate was low (reportedly "30s to 50s) for which EMT gave him 0.5 mg atropine. Currently, he notes gen malaise, no cp, no palp. No feeling of syncope or presyncope at this time. Denies any recent cp or palp or swelling. Has been found to be COVID + at this admission Review of Systems-Cardiology Review of Systems Constitutional: As described under HPI Eyes: No vision change Ears/Nose/Throat: No ear discharge, No nasal drainage, No recent hearing loss Respiratory: As described under HPI Cardiovascular: As described under HPI Gastrointestinal: No diarrhea; nausea; No vomiting Genitourinary: No dysuria, No hematuria, No urine frequency changes Musculoskeletal: No back pain, No joint pain Skin: No rash, No ulcerations Psychiatric/Neurological: As described under HPI; No seizure, No focal weakness Hematologic: No bleeding abnormalities VCS-Qrtnhz-Nwrouq Hx Patient Social History Smoking Status: Never a Smoker Have you traveled recently?: No Alcohol Use?: Yes Pt feels they are or have been: No Immunizations Up To Date Tetanus Booster (TDap): More than 5yrs Date of Influenza Vaccine: Jun 04, 2019 Past Medical History PMH As described under Assessment. Family Medical History Family Medical History: Does not report fam h/o premature CAD Allergies and Home Medications Allergies Coded Allergies: Penicillins (Verified Allergy, Unknown, 05/11/17) meperidine (Verified Allergy, Unknown, 05/11/17) Home Medications Amlodipine Besylate 10 Mg Tablet, 10 MG PO 1800, (Reported) Last Action: Reviewed Aspirin 81 Mg Tablet., 81 MG PO DAILY, (Reported) Last Action: Reviewed Metoprolol Succinate 50 Mg Tab.er.24h, 50 MG PO 1800, (Reported) Last Action: Reviewed Pantoprazole Sodium 40 Mg Tablet.dr, 40 MG PO DAILY, (Reported) Last Action: Reviewed Promethazine HCl/Codeine 473 Ml Syrup, 10 ML PO TID PRN for COUGH, (Reported) Last Action: Reviewed Rosuvastatin Calcium 10 Mg Tablet, 10 MG PO 1800, (Reported) Last Action: Reviewed Patient Home Medication List Home Medication List Reviewed: Yes Physical Exam-Cardiology Physical Exam Vital Signs/I&O 04/26/21 04/26/21 04/26/21 04/26/21 10:46 10:46 13:20 14:00 Temp 36.5 Pulse 62 51 Resp 23 19 B/P (MAP) 105/74 (84) 114/76 Pulse Ox 97 93 90 O2 Delivery Room Air Room Air Room Air Room Air 04/26/21 04/26/21 14:13 16:00 Temp 36.5 Pulse 61 54 Resp 14 B/P (MAP) 134/86 (102) Pulse Ox 92 Capillary Refill : Less Than 3 Seconds Constitutional: AAO x 3, well-developed, well-nourished HEENT: EOMI, hearing is well preserved; No xanthelasmas are seen Neck: carotid pulses are 2 + bilaterally, with good upstrokes Respiratory: No accessory muscle use; other (good air entry bilaterally, somewhat diminished at the bases) Cardiovascular: regular rate-rhythm, S1 and S2 Gastrointestinal: No tender; soft; No guarding, No rebound; audible bowel sounds Extremities: No clubbing, No cyanosis, No significant edema Neurologic/Psychiatric: oriented x 3, other (moves all limbs equally) Skin: No rash on exposed areas, No ulcerations on exposed areas Data Review Labs Laboratory Tests 04/26/21 10:54: White Blood Count 5.5, Red Blood Count 4.05L, Hemoglobin 12.8L, Hematocrit 39L, Mean Corpuscular Volume 95, Mean Corpuscular Hemoglobin 32, Mean Corpuscular Hemoglobin Concent 33, Red Cell Distribution Width 13.0, Platelet Count 141, Mean Platelet Volume 11.2, Immature Granulocyte % (Auto) 0, Neutrophils (%) (Auto) 61, Lymphocytes (%) (Auto) 17, Monocytes (%) (Auto) 20H, Eosinophils (%) (Auto) 1, Basophils (%) (Auto) 1, Neutrophils # (Auto) 3.4, Lymphocytes # (Auto) 1.0, Monocytes # (Auto) 1.1H, Eosinophils # (Auto) 0.1, Basophils # (Auto) 0.0, Immature Granulocyte # (Auto) 0.0, Neutrophils % (Manual) 60, Lymphocytes % (Manual) 18, Monocytes % (Manual) 15, Band Neutrophils 7, Percent Immature Platelet Fraction 4.1, Blood Morphology Comment NORMAL, Sodium Level 136, Potassium Level 3.3L, Chloride Level 110H, Carbon Dioxide Level 20L, Anion Gap 6, Blood Urea Nitrogen 14, Creatinine 1.62H, Estimat Glomerular Filtration Rate 43, BUN/Creatinine Ratio 9, Glucose Level 101, Calcium Level 7.1L, Corrected Calcium 7.8L, Magnesium Level 1.5L, Total Bilirubin 0.3, Aspartate Amino Transf (AST/SGOT) 25, Alanine Aminotransferase (ALT/SGPT) 31, Alkaline Phosphatase 55, Troponin I < 0.028, C-Reactive Protein High Sensitivity 0.65H, B-Type Natriuretic Peptide 26.7, Total Protein 5.7L, Albumin 3.1L, Thyroid Stimulating Hormone (TSH) 0.46 04/26/21 11:00: SARS-CoV-2 RNA (RT-PCR) DetectedH Laboratory Tests 04/26/21 10:54 A/P-Cardiology Assessment/Admission Diagnosis Syncope and transient bradycardia of undetermined etiology - ? vasovagal episode made worse by nausea, beta-key use, and COVID COVID-19 positive status Coronary artery disease - March 31, 2016, status post acute myocardial infarction, cath showed total occlusion of the right coronary artery, treated with deployment of 2 overlapping stent Promus Premier 3.524 mm and 3.512 mm with excellent results, balloon angioplasty for distal disease. Mild disease at the proximal and mid LAD and first diagonal branch, nondominant circumflex artery - stress was done in May 2019 showing good exercise tolerance for 9 minutes 25 seconds on Salo protocol, severe hypertensive response to exercise, diaphragmatic attenuation with typical male pattern no significant ischemia or infarction, EF 59 percent - Echocardiogram was done in May 2019, normal LV size, EF 55-65 percent, grade 1 diastolic dysfunction, PA pressure 35-40 mmHg CKD-3 Hypertension, Patient reports unable to tolerate lisinopril secondary to renal insufficiency. H/o hyperlipidemia Carotid artery stenosis-history of right CEA done February 2019, monitored by Dr. Santos Discussion and Recomendations * D/c beta-key * Replace electrolyte * iv fluids * Tele * Further recs to be based on his hospital course Clinical Quality Measures AMI/AHF: ASA po Prior to arrival: Yes WON TURNER MD FACP FAC CCDS Apr 26, 2021 17:12
[2021-04-26 19:36] VITALS: BP 138/81
--- NOTE | 2021-04-26 22:32 | History & Physical-Hospitalist ---
History of Present Illness HPI/Chief Complaint Rashaad Khan is a 65 year old male who presented with bradycardia. He was driving and felt sick so pulled over. He felt lightheaded and may have had an episode of syncope. EMS was called and he was profoundly bradycardic in the 30s. He was given atropine. Upon my exam, he was feeling better. He had no complaints. He says he's had a cough for a few days. He said he was with some people on Monday who began to get sick on Monday. He received the COVID vaccine. Source: patient Exam Limitations: no limitations Date Seen 04/26/21 Time Seen by a Provider: 16:45 Attending Physician Peyton Myers MD PCP Sarabjit Singh DO Referring Physician Date of Admission Apr 26, 2021 at 11:44 Home Medications & Allergies Home Medications Reviewed patient Home Medication Reconciliation performed by pharmacy medication reconciliations data communications technician and/or nursing. Patients Allergies have been reviewed. Allergies Allergies Coded Allergies Penicillins (Verified Allergy, Unknown, 05/11/17) meperidine (Verified Allergy, Unknown, 05/11/17) Past [id number]-Wksmrc Hx Patient Social History Tobacco Use?: No Smoking Status: Never a Smoker Use of E-Cig and/or Vaping dev: No Alcohol Use?: Yes Alcohol Frequency: Once in a while Pt feels they are or have been: No Immunizations Up To Date Date of Influenza Vaccine: Jun 04, 2019 First/Initial COVID19 Vaccinat: 12/01/20 Second COVID19 Vaccination Herb: 12/01/20 Tetanus Booster (TDap): Unknown Hepatitis A: Yes Hepatitis B: Yes PED Vaccines UTD: No Seasonal Allergies Seasonal Allergies: No Current Status Advance Directives: Yes Primary Language: Spanish Preferred Spoken Language: Spanish Sensory deficits: Vision impairment Implanted or Applied Medical D: None Past Medical History Surgeries: Cardiac, Coronary Stent Currently Using CPAP: No Currently Using BIPAP: No Coronary Artery Disease, High Cholesterol, Hypertension Sexually Transmitted Disease: No HIV/AIDS: No Kidney Stones Loss of Vision: Bilateral Hearing Impairment: Denies Blood Disorders: No Adverse Reaction/Blood Tranf: No (N/A) Family Medical History CAD Under 55 Years Old Review of Systems Constitutional: dizziness, malaise EENTM: no symptoms reported Respiratory: cough Cardiovascular: syncope Gastrointestinal: nausea Genitourinary: no symptoms reported Musculoskeletal: no symptoms reported Skin: no symptoms reported Psychiatric/Neurological: No Symptoms Reported Physical Exam Physical Exam Vital Signs Vital Signs - First Documented Capillary Refill : Less Than 3 Seconds Height, Weight, BMI Height: 6'0" Weight: 200lbs. 1.0oz. [id number]; 27.14 BMI Method:Stated General Appearance: No Apparent Distress, WD/WN HEENT: PERRL/EOMI, Pharynx Normal Neck: Normal Inspection, Supple Respiratory: Lungs Clear, Normal Breath Sounds, No Respiratory Distress Cardiovascular: No Edema, No Murmur, Bradycardia Gastrointestinal: Normal Bowel Sounds, Non Tender, Soft Extremity: Normal Inspection, Non Tender, No Pedal Edema Neurologic/Psychiatric: Alert, Oriented x3, No Motor/Sensory Deficits, Normal Mood/Affect Skin: Normal Color, Warm/Dry Results Results/Procedures Labs Laboratory Tests 04/26/21 10:54 Patient resulted labs reviewed. Imaging: Reviewed Imaging Report Assessment/Plan Admission Diagnosis Bradycardia Admission Status: Observation Assessment and Plan Bradycardia Syncope Given atropine Monitor on telemetry Cardiology consulted Hold metoprolol COVID-19 Not hypoxic Monoclonal antibody infusion ordered DVT prophylaxis: Lovenox Diagnosis/Problems Diagnosis/Problems (1) Bradycardia Status: Acute (2) Syncope and collapse Status: Acute (3) COVID-19 Status: Acute Clinical Quality Measures AMI/AHF: ASA po Prior to arrival: Yes PEYTON MYERS MD Apr 26, 2021 22:32
[2021-04-27] VITALS: BP 110/63
[2021-04-27] MEDS: LACTATED RINGERS 1,000 ML IV SCH ×3 (02:15→15:24)
[2021-04-27 04:00] VITALS: BP 118/77
[2021-04-27 04:41] LABS: BASOPHILS % (AUTO) 0 % (0-10); EOSINOPHILS % (AUTO) 1 % (0-10); HEMATOCRIT 44 % (40-54); HEMOGLOBIN 14.1 g/dL (13.3-17.7); LYMPHOCYTES # (AUTO) 1.3 10^3/uL (1.0-4.0); LYMPHOCYTES % (AUTO) 19 % (12-44); MEAN CORPUSCULAR HEMOGLOBIN 31 pg (25-34); MEAN CORPUSCULAR HGB CONC 32 g/dL (32-36); MEAN CORPUSCULAR VOLUME 97 fL (80-99); MEAN PLATELET VOLUME 11.4 fL (9.0-12.2); MONOCYTES # (AUTO) 0.9 10^3/uL (0.0-1.0); MONOCYTES % (AUTO) 13 % (0-12); NEUTROPHILS # (AUTO) 4.4 10^3/uL (1.8-7.8); NEUTROPHILS % (AUTO) 66 % (42-75); PLATELET COUNT 132 10^3/uL (130-400); WHITE BLOOD COUNT 6.7 10^3/uL (4.3-11.0)
[2021-04-27 04:51] LABS: POTASSIUM 4.2 MMOL/L (3.6-5.0)
[2021-04-27 04:53] LABS: CALCIUM 8.2 MG/DL (8.5-10.1)
[2021-04-27 04:57] LABS: CREATININE SERUM 1.58 MG/DL (0.60-1.30)
[2021-04-27 08:00] VITALS: BP 136/91
[2021-04-27] MEDS ORDERED: ASPIRIN 81 MG CHEW (CHILDREN'S ASA) PO SCH (09:00)
--- NOTE | 2021-04-27 10:55 | Discharge Summary ---
Diagnosis/Chief Complaint Date of Admission Apr 26, 2021 at 11:44 Date of Discharge Admission Diagnosis Bradycardia Primary Care Sarabjit Singh Raulito DO Discharge Diagnosis (1) Bradycardia Status: Acute (2) Syncope and collapse Status: Acute (3) COVID-19 Status: Acute Discharge Summary Discharge Physical Exam Allergies: Coded Allergies: Penicillins (Verified Allergy, Unknown, 05/11/17) meperidine (Verified Allergy, Unknown, 05/11/17) Vitals & I&Os Vital Signs Date Time Temp Pulse Resp B/P (MAP) Pulse Ox O2 Delivery O2 Flow Rate FiO2 04/27/21 08:00 37.1 63 18 136/91 (106) 92 Room Air 04/27/21 07:58 2.00 Hospital Course Labs (last 24 hrs) Laboratory Tests 04/26/21 11:00: SARS-CoV-2 RNA (RT-PCR) DetectedH 04/27/21 04:20: White Blood Count 6.7, Red Blood Count 4.50, Hemoglobin 14.1, Hematocrit 44, Mean Corpuscular Volume 97, Mean Corpuscular Hemoglobin 31, Mean Corpuscular Hemoglobin Concent 32, Red Cell Distribution Width 13.2, Platelet Count 132, Mean Platelet Volume 11.4, Immature Granulocyte % (Auto) 0, Neutrophils (%) (Auto) 66, Lymphocytes (%) (Auto) 19, Monocytes (%) (Auto) 13H, Eosinophils (%) (Auto) 1, Basophils (%) (Auto) 0, Neutrophils # (Auto) 4.4, Lymphocytes # (Auto) 1.3, Monocytes # (Auto) 0.9, Eosinophils # (Auto) 0.0, Basophils # (Auto) 0.0, Immature Granulocyte # (Auto) 0.0, Sodium Level 136, Potassium Level 4.2, Chloride Level 106, Carbon Dioxide Level 23, Anion Gap 7, Blood Urea Nitrogen 15, Creatinine 1.58H, Estimat Glomerular Filtration Rate 44, BUN/Creatinine Ratio 9, Glucose Level 95, Calcium Level 8.2L Patient resulted labs reviewed. Pending Labs Laboratory Tests 04/27/21 04:20: White Blood Count 6.7, Red Blood Count 4.50, Hemoglobin 14.1, Hematocrit 44, Mean Corpuscular Volume 97, Mean Corpuscular Hemoglobin 31, Mean Corpuscular Hemoglobin Concent 32, Red Cell Distribution Width 13.2, Platelet Count 132, Mean Platelet Volume 11.4, Immature Granulocyte % (Auto) 0, Neutrophils (%) (Auto) 66, Lymphocytes (%) (Auto) 19, Monocytes (%) (Auto) 13, Eosinophils (%) (Auto) 1, Basophils (%) (Auto) 0, Neutrophils # (Auto) 4.4, Lymphocytes # (Auto) 1.3, Monocytes # (Auto) 0.9, Eosinophils # (Auto) 0.0, Basophils # (Auto) 0.0, Immature Granulocyte # (Auto) 0.0, Sodium Level 136, Potassium Level 4.2, Chloride Level 106, Carbon Dioxide Level 23, Anion Gap 7, Blood Urea Nitrogen 15, Creatinine 1.58, Estimat Glomerular Filtration Rate 44, BUN/Creatinine Ratio 9, Glucose Level 95, Calcium Level 8.2 Imaging: Reviewed Imaging Report Discharge Home Medications: Active Scripts Active Reported Promethazine-Codeine Solution (Promethazine HCl/Codeine) 473 Ml Syrup 10 Ml PO TID PRN Amlodipine Besylate 10 Mg Tablet 10 Mg PO 1800 Aspirin EC (Aspirin) 81 Mg Tablet.dr 81 Mg PO DAILY Pantoprazole Sodium 40 Mg Tablet.dr 40 Mg PO DAILY Metoprolol Succinate 50 Mg Tab.er.24h 50 Mg PO 1800 Rosuvastatin Calcium 10 Mg Tablet 10 Mg PO 1800 Instructions to patient/family Please see electronic discharge instructions given to patient. Clinical Quality Measures AMI/AHF: ASA po Prior to arrival: Yes NEDA NOBLE MD Apr 27, 2021 10:55
[2021-04-27 12:00] VITALS: BP 126/88
--- NOTE | 2021-04-27 12:53 | Discharge Inst-Simple/Standard ---
Discharge Inst-Standard Discharge Medications New, Converted or Re-Newed RX: Transmitted to Pharmacy Patient Instructions/Follow Up Plan of Care/Instructions/FU: Please continue to take your medications as written. Please follow up with your primary care doctor to follow up this hospital stay. Please follow up with Dr Morales next week when you're out of isolation. Activity as Tolerated: Yes Discharge Diet: No Restrictions Return to The Hospital For: Chest pain, shortness of breath, weakness, low oxygen saturations, fever, if you feel you are getting worse. NEDA NOBLE MD Apr 27, 2021 12:53
[2021-04-27] MEDS: ENOXAPARIN 40 MG/0.4 ML (LOVENOX) SYR SC SCH (15:24)
[2021-04-27 15:45] VITALS: BP 140/88
--- NOTE | 2021-04-27 17:03 | Progress Note - Cardiology ---
Cardiology SOAP Progress Note Subjective: No cp or palp or syncope or shortness of breath or diaphoresis or swelling or n/v/d or other symptoms since admission Wishes to go home Objective: I&O/Vital Signs 04/27/21 04/27/21 04/27/21 04/27/21 06:30 07:58 08:00 08:00 Temp 37.1 Pulse 49 63 Resp 18 B/P (MAP) 136/91 (106) Pulse Ox 92 92 92 O2 Delivery Nasal Cannula Room Air Room Air O2 Flow Rate 2.00 04/27/21 04/27/21 04/27/21 12:00 12:39 15:45 Temp 37.0 Pulse 59 53 66 Resp 20 25 B/P (MAP) 126/88 (101) 140/88 (105) Pulse Ox 92 93 O2 Delivery Room Air Room Air 04/26/21 23:59 Intake Total 4300 ml Output Total 1025 ml Balance 3275 ml Weight (Pounds): 200 Weight (Ounces): 1.0 Weight (Calculated Kilograms): 90.086314 Constitutional: AAO x 3, well-developed, well-nourished Respiratory: No accessory muscle use; other (good air entry bilaterally, somewhat diminished at the bases) Cardiovascular: regular rate-rhythm, S1 and S2 Gastrointestional: No tender; soft; No guarding, No rebound; audible bowel sounds Extremities: No clubbing, No cyanosis, No significant edema Neurologic/Psychiatric: oriented x 3, other (moves all limbs equally) Skin: No rash on exposed areas, No ulcerations on exposed areas Results/Procedures: Labs Laboratory Tests 04/27/21 04:20: White Blood Count 6.7, Red Blood Count 4.50, Hemoglobin 14.1, Hematocrit 44, Mean Corpuscular Volume 97, Mean Corpuscular Hemoglobin 31, Mean Corpuscular Hemoglobin Concent 32, Red Cell Distribution Width 13.2, Platelet Count 132, Mean Platelet Volume 11.4, Immature Granulocyte % (Auto) 0, Neutrophils (%) (Auto) 66, Lymphocytes (%) (Auto) 19, Monocytes (%) (Auto) 13H, Eosinophils (%) (Auto) 1, Basophils (%) (Auto) 0, Neutrophils # (Auto) 4.4, Lymphocytes # (Auto) 1.3, Monocytes # (Auto) 0.9, Eosinophils # (Auto) 0.0, Basophils # (Auto) 0.0, Immature Granulocyte # (Auto) 0.0, Sodium Level 136, Potassium Level 4.2, Chloride Level 106, Carbon Dioxide Level 23, Anion Gap 7, Blood Urea Nitrogen 15, Creatinine 1.58H, Estimat Glomerular Filtration Rate 44, BUN/Creatinine Ratio 9, Glucose Level 95, Calcium Level 8.2L Laboratory Tests 04/26/21 10:54 04/27/21 04:20 A/P: Assessment: Syncope and transient bradycardia of undetermined etiology - probable vasovagal episode made worse by nausea, beta-key use, and COVID COVID-19 positive status Coronary artery disease - March 31, 2016, status post acute myocardial infarction, cath showed total occlusion of the right coronary artery, treated with deployment of 2 overlapping stent Promus Premier 3.524 mm and 3.512 mm with excellent results, balloon angioplasty for distal disease. Mild disease at the proximal and mid LAD and first diagonal branch, nondominant circumflex artery - stress was done in May 2019 showing good exercise tolerance for 9 minutes 25 seconds on Salo protocol, severe hypertensive response to exercise, diaphragmatic attenuation with typical male pattern no significant ischemia or infarction, EF 59 percent - Echocardiogram was done in May 2019, normal LV size, EF 55-65 percent, grade 1 diastolic dysfunction, PA pressure 35-40 mmHg CKD-3 Hypertension, Patient reports unable to tolerate lisinopril secondary to renal insufficiency. H/o hyperlipidemia Carotid artery stenosis-history of right CEA done February 2019, monitored by Dr. Santos Plan: * Beta-key stopped * Replaced electrolyte and gave iv fluids * He feels better and wishes to go home * I discussed his case with Dr Law this morning * Outpt f/u advised with his shoe shanker Dr Morales * Advised to return to the hospital in case of any recurrence or any new symptoms Clinical Quality Measures AMI/AHF: ASA po Prior to arrival: Yes WON TURNER MD [facility] Apr 27, 2021 17:03
== END 2021-04-27 17:05 | disposition home or self-care (01) ==
LOC: EDUNIT# 10:33 → ER 10:45 → CSD 11:44
PROVIDERS: ADMIT Internal Medicine; ATTEND Internal Medicine
DX: R55 Syncope and collapse (principal); R00.1 Bradycardia, unspecified; U07.1 COVID-19; E78.00 Pure hypercholesterolemia, unspecified; I25.10 Atherosclerotic heart disease of native coronary artery without angina pectoris; I25.2 Old myocardial infarction; I12.9 Hypertensive chronic kidney disease with stage 1 through stage 4 chronic kidney disease, or unspecified chronic kidney disease; N18.30 Chronic kidney disease, stage 3 unspecified; E78.5 Hyperlipidemia, unspecified; I65.29 Occlusion and stenosis of unspecified carotid artery; Z79.891 Long term (current) use of opiate analgesic; Z79.899 Other long term (current) drug therapy; Z79.82 Long term (current) use of aspirin; Z95.5 Presence of coronary angioplasty implant and graft
CPT/HCPCS: 36415; 71045; 80048; 80053; 83735; 83880; 84443; 84484; 85007; 85025; 85027; 86141; 87636; 93005

== ENCOUNTER → 2021-06-21 | Outpatient (CLI) | payer MEDICARE, OTHER ==
[~2021-06-21] VITALS: Ht 182 cm; Wt 91.0 kg
[~2021-06-21] MED LIST changes: +AMLO-251 PO; +CATHETER FLUSH 10 ML SYR IV PRN; +PROM473S9 PO
[2021-06-21 08:50] VITALS: BP 118/75
--- NOTE | 2021-06-23 08:32 | Cardiology Stress Test Report ---
Stress Test Report Date of Procedure/Referring: Date of Procedure: Jun 21, 2021 Emily Garcia Admitting Physician Sarabjit Singh DO Indications: CAD Baseline Heart Rate: 44 Baseline Blood Pressure: Blood Pressure Systolic: 118 Blood Pressure Diastolic: 75 Vital Signs Date Time Temp Pulse Resp B/P (MAP) Pulse Ox O2 Delivery O2 Flow Rate FiO2 06/21/21 08:50 44 118/75 (89) 98 Baseline Vital Signs Vital Signs Date Time Temp Pulse Resp B/P (MAP) Pulse Ox O2 Delivery O2 Flow Rate FiO2 06/21/21 08:50 44 118/75 (89) 98 Baseline EKG: Baseline EKG: NSR Summary: After explaining the procedure and details to the patient, he signed the consent and was brought to the stress nuclear laboratory. Patient exercised on standard Salo protocol, EKG, heart rate and blood pressure were monitored continuously, resting and stress doses of radio tracer were injected, imaging was acquired and reviewed in the short axis, horizontal long axis and vertical long axis views Patient was able to exercise for a total of 8 minutes on Salo protocol, METs 9.7 Maximum heart rate 143 Maximum blood pressure 176/102 Stress EKG, Minimal nondiagnostic changes Recovery EKG, Return to baseline TID: 0.88 SSS: 5 SDS: 1 EF: 60 Conclusion: 1. Good exercise tolerance for a total of 8 minutes on standard Salo protocol, 9.7 METS achieving 93% of maximal expected heart rate 2. Baseline sinus bradycardia with appropriate heart rate response to exercise with transient ventricular bigeminy at peak stress level, no acute ischemic changes 3. Hypertensive response to exercise with peak blood pressure 176/102 return to baseline during recovery 4. Diaphragmatic attenuation with mild decrease uptake involving the inferior wall and inferolateral wall which appeared to be fixed, no significant reversibility was noted 5. Normal left ventricular size with normal contractility, ejection fraction 60% MOO KASPER MD Jun 23, 2021 08:32
== END ==
LOC: CARD 07:30
PROVIDERS: ATTEND Physician Assistant
DX: I10 Essential (primary) hypertension (principal); R07.9 Chest pain, unspecified; R00.2 Palpitations
CPT/HCPCS: 78452; 93017; A9502